=== PATIENT | female | born 1995 | race Caucasian/White ===

== ENCOUNTER 2019-09-13 08:57 | Outpatient (CLI) | payer OTHER, SELFPAY ==
--- NOTE | ~2019-09-13 | US_ITS ---
EXAMINATION: US soft tissue abdomen DATE: 09/13/2019 09:37 INDICATION: Subcutaneous mass at the section scar. TECHNIQUE: Multiple grayscale and Doppler ultrasound images of the abdomen were obtained. COMPARISON: None FINDINGS: In the midline suprapubic region, there is a 10 x 6 x 8 mm subcutaneous predominantly cysti c mass with small solid mural component. IMPRESSION: 1. 10 mm subcutaneous cystic and solid mass at the section scar, which may be a chronic june kenton or endometriosis. Reviewed, dictated and finalized at location A. IMPRESSION: 1. 10 mm subcutaneous cystic and solid mass at the section scar, which may be a chronic hematoma or endometriosis.
== END 2019-09-13 08:58 | disposition home or self-care (01) ==
LOC: ANHIMG 09:00
PROVIDERS: Visit Provider Obstetrics & Gynecology
DX: L72.3 Sebaceous cyst (principal)
CPT/HCPCS: 76705

== ENCOUNTER 2020-03-10 00:46 | Outpatient (CLI) | payer OTHER, SELFPAY ==
[2020-03-10 18:04] LABS: SARS-CoV-2 RNA PCR Negative
== END 2020-03-10 00:47 | disposition home or self-care (01) ==
LOC: ANHCOVIDDT 00:46
PROVIDERS: Visit Provider Surgery
DX: Z01.812 Encounter for preprocedural laboratory examination (principal); Z20.828 Contact with and (suspected) exposure to other viral communicable diseases
CPT/HCPCS: 87635; C9803; U0003

== ENCOUNTER 2020-03-13 00:49 | Day surgery (SDC) | payer OTHER, SELFPAY ==
[2020-03-07 15:50] VITALS: BMI 49.1
--- NOTE | 2020-03-12 10:03 | WPDANESEPPF ---
Anes - Initial Pre Proc Eval Procedure: Operation Date: 03/13/20 10:30 Proposed Procedures p Debridement and Excision Suture Granuloma Abdominal Wound - Jaspreet Salcedo MD Date/Time: 03/12/20 10:03 Surgeon: Jaspreet Salcedo MD Pre Op Diagnosis: suture granuloma with abscess Patient Data Age: 24 Gender: F Height: 1.42 m Weight: 99.34 kg Allergies Allergy/AdvReac Type Severity Reaction Status Date / Time No Known Allergies Allergy Verified 03/13/20 08:45 Home Medications Medication Instructions Recorded Confirmed Type Complete 1 tablet PO DAILY 04/03/19 03/13/20 History silver [SilvrStat] 1 applic TOPICAL DAILY 03/07/20 03/13/20 History Patient hx anesthesia problems: none Family hx anesthesia problems: none PMFSH Past Medical History Medical History Abscess Anxiety Depression Encounter for supervision of normal in multigravida in third trimester Morbid obesity Rash of body Scoliosis Sebaceous cyst Smoker Surgical History Surgical History Hx of ovarian cystectomy Previous section Apr 2017,Apr 2019 Family History Family History Grandparent Hypertension Mother Hypertension Social History Social History Smoking packs per day: 0.5 Smoking cigarettes per day: 10.0 Years smoked: 10 Smoking pack-years: 5.00 Smoking status: Current every day smoker Tobacco type: cigarettes Second hand tobacco smoke exposure: No Additional smoking assessment comments: SMOKING DURING Alcohol intake: current Substance use: never Gender identity (if verbalized by the patient): Female Spiritual care concerns: No Anes - Eval Final PreProcedure Day of Procedure 03/12/20 10:03 Patient weight: obese Heart: regular rate and rhythm Lungs: clear to auscultation and normal air movement Airway: Mallampati scale class II Neurological: alert and oriented Last oral intake: >/= 8 hours ASA classification: III Emergent: no Anesthetic plan: proceed Anesthesia type and monitoring: general GIVS and ETT Informed Consent: The patient's anesthetic plan and its attendant risks and benefits were discussed with the patient/family/POA. Questions were solicited and answers provided to the satisfaction of the patient/family/POA.
[2020-03-13] VITALS (9 sets, daily range): BP systolic 91–129; BP diastolic 56–80; PULSE 86–119; RESP 14–30; TEMP 36.4–36.7; O2SAT 96–98
[2020-03-13] MEDS: LACTATED RINGERS 1,000 ML 30 ML IV CONT ×2 (09:05→12:00)
--- NOTE | 2020-03-13 09:10 | PC.NURSE ---
FHT's 150-160's dopplered midline.
--- NOTE | 2020-03-13 10:18 | SUR.PREOP ---
Up to bathroom.
--- NOTE | 2020-03-13 10:26 | WPDHPUPDATE1 ---
History and Physical Update Update Date/Time: 03/13/20 10:26 History and Physical has been reviewed, including an updated exam of the patient. There are NO changes in the patient's condition. Risks, benefits, and alternatives have been discussed and questions answered. Patient agrees to proceed with procedure.
[2020-03-13] MEDS: ceFAZolin 2 GM/D5W 50 ML 2 GM/50 ML BAG IVPB (10:41)
[2020-03-13] MEDS: BUPIVACAINE/EPINEPHRINE 0.5% 10 ML VIAL 30 ML INFILTRATE (11:19)
--- NOTE | 2020-03-13 12:31 | PM.PROC ---
Procedure Note - Detailed Date of procedure: 03/13/20 Pre-op diagnosis: suture granuloma with abscess Suture granuloma with abscess Post-op diagnosis: other (Extensive subcutaneous inflammatory mass with abscess) Procedure performed: Excisional debridement skin and subcutaneous inflammatory mass 17 x 6.5 x 2.5 cm Description of procedure: The patient was taken to surgery. She is in the 2nd trimester . Spinal anesthetic was introduced. She was also given IV sedation. The abdominal panniculus was taped in a cephalad location so that the draining tract was more easily visible. Full prep and drape was carried out. I infiltrated some methylene blue into the tract initially. I then excised the skin and immediate subcutaneous which was severely inflamed. I then followed the path of the methylene blue. It tracked to the left subcutaneous tissue. There was a large subcutaneous mass associated with it. I followed this tract using probes as well as curved find tip clamps. Eventually the methylene blue came to an end well above the anterior abdominal wall fascia. I excised all of this portion of the abdominal wall subcutaneous mass. There were pockets of cloudy yellow fluid suggestive of chronic inflammation and/or abscess. This was sent to pathology with the skin labeled left-sided subcutaneous inflammatory mass. On the right side, however, there was an even larger honeycomb type of subcutaneous inflammatory mass. There were numerous pockets of yellow cloudy fluid within this mass and 1 larger cystic pocket as well. This was also excised. This was sent to pathology labeled right-sided subcutaneous inflammatory mass. I cut open the left-sided inflammatory mass seeing if there was an 0 fend Ng foreign body but could not find 1. The remaining tissue in the abdominal wall appeared to be healthy without any inflammation. The anterior abdominal wall fascia was not violated. No large abscess was noted although each of the multiple pockets could each have been small abscesses. I measured the result in wound and had the dimensions noted above. Local anesthesia was infiltrated into the abdominal wall fascia and all wound edges. I then packed the wound with a deep layer of Xeroform gauze followed by fluffs and 4x4s. An ABD was placed and Medipore tape was used. The patient was awakened and taken to recovery in good condition. Sponge and needle counts were correct x2. Anesthesia: MAC, local (0.5% Marcaine with epinephrine) and spinal Surgeon: Jaspreet Salcedo MD Social Service Director: Florina CREWS Estimated blood loss (mL): 5 Drains: No Packing: Yes Pathology: yes (Left-sided inflammatory subcutaneous mass with skin, right-sided inflammatory subcutaneous mass) Complications: None Condition: stable Disposition: PACU Findings: Extensive honeycomb type inflammatory mass with multiple pockets and 1 cyst like structure. All excised and wound left open. No suture material or other foreign body was evident.
--- NOTE | 2020-03-13 12:46 | SUR.PHASEI ---
OB RN at the bedside getting heart tones after procedure.
--- NOTE | 2020-03-13 13:10 | PC.NURSE ---
FHTs 150's per doppler.
== END 2020-03-13 14:17 | disposition home or self-care (01) ==
PROVIDERS: Visit Provider Surgery
PROC: (CPT 11042; principal; 2020-03-13 10:30)
DX: O26.892 Other specified pregnancy related conditions, second trimester (principal); L02.211 Cutaneous abscess of abdominal wall; L92.8 Other granulomatous disorders of the skin and subcutaneous tissue; O99.332 Smoking (tobacco) complicating pregnancy, second trimester; F17.210 Nicotine dependence, cigarettes, uncomplicated; Z3A.20 20 weeks gestation of pregnancy
CPT/HCPCS: 11042; 11045 ×5; 88304; A9270; J0690; J2704; J3010; J7120; Q9968

== ENCOUNTER 2020-05-07 11:09 | Outpatient (CLI) | payer OTHER, SELFPAY ==
[2020-05-07 13:18] LABS: Basophils Percent Auto 0.2 % (0.2-1.2); Hematocrit 36.6 % (37.0-47.0); Immature Granulocyte Absolute 0.07 K/mm3 (0.00-0.031); Immature Granulocyte Percent A 0.5 % (0-0.5); Lymphocytes Absolute Auto 3.72 K/mm3 (0.9-3.2); Mean Corpuscular HGB Conc 32.8 g/dl (32-36); Mean Corpuscular Hemoglobin 27.7 pg (26-34); Mean Corpuscular Volume 84.5 fl (80-100); Mean Platelet Volume 10.1 fl (7.4-10.4); Monocytes Absolute Auto 0.6 K/mm3 (0.1-0.6); Monocytes Percent Auto 4.1 % (2.6-8.5); Neutrophils Absolute Auto 9.4 K/mm3 (1.3-6.7); Neutrophils Percent Auto 68.2 % (45.5-73.1); Platelet Count Result 308 k/mm3 (150-375); Red Blood Count 4.33 M/mm3 (4.2-5.4); Red Cell Distribution Width 14.6 % (11.5-14.5); White Blood Count 13.8 K/mm3 (4.5-10.0)
[2020-05-07 13:32] LABS: Glucose 1 Hour PP 50gm Dose 110 mg/dL
[2020-05-07 14:14] LABS: HIV 1/2 Ab P24 Ag Result Negative (Negative)
[2020-05-08 09:26] LABS: Rapid Plasma Reagin Non-Reactive (NonReactive)
== END 2020-05-07 11:10 | disposition home or self-care (01) ==
LOC: ANHLAB 11:10
PROVIDERS: PCP Obstetrics & Gynecology; Visit Provider Obstetrics & Gynecology
DX: O09.892 Supervision of other high risk pregnancies, second trimester (principal); Z3A.00 Weeks of gestation of pregnancy not specified
CPT/HCPCS: 36415; 82947; 85025; 86592; 86703; G0432

== ENCOUNTER 2020-05-15 07:38 | Outpatient (RCR) | payer OTHER, SELFPAY ==
[2020-02-15 09:00] VITALS: BMI 103.8
--- NOTE | 2020-03-08 14:56 | WPDWOUNDNOTE ---
Wound Care Note Date/Time: 03/08/20 14:56 patient is a 24-year-old woman who is currently 22 weeks gestation with her 3rd child. She is a patient of Dr. Delvalle. I was asked to see the patient due to an open abdominal abscess that has been draining. The patient has a history of a done 3 years ago. Following this, she reports having to do chronic dressing changes as the wound became infected postoperatively. This went on to heal. The patient then had a last April- April 2019. This wound did not have any problems healing. Since July of 2019, she has had intermittent drainage from an open wound that is cephalad or above the Pfannenstiel scar. It is only about 5 or 6 in above the scar. Brownish purulent drainage has been occurring and in fact recently has been occurring more often. It is tender and sometimes painful but she has not had any fever or chills. She is seen now in the wound clinic for evaluation. Assessment and Plan Assessment and plan (1) Abscess: Code(s): L02.91 - Cutaneous abscess, unspecified Status: Chronic Assessment and Plan: This has the appearance of a suture granuloma probably from her initial section 3 years ago in April of 2017. I reviewed the operative reports of both C-sections and, in both instances, the fascia was closed with absorbable 0 Vicryl suture. Since this suture is absorbable it seems surprising that a suture granuloma could persist to this time. It does appear the patient has an abscess that is draining in the lower abdomen in the area of her panniculus. It is too tender to explore or incise and drain in the office. Will plan to go ahead with exploration and debridement with drainage under anesthesia in the operating room. If a suture granuloma can be found, it will be removed. This may well be a difficult infection to heal due to the patient's large abdominal panniculus. (2) 20 weeks gestation of : Code(s): Z3A.20 - 20 weeks gestation of Status: Chronic Assessment and Plan: Even though the patient is currently, her [facility] prefers that we proceed such that this abdominal wound abscess will be healed by the time of her delivery. (3) History of elective section: Code(s): Z98.891 - History of uterine scar from previous surgery Status: Chronic (4) Morbid obesity: Code(s): E66.01 - Morbid (severe) obesity due to excess calories Status: Chronic Assessment and Plan: Increases risk of surgery and may cause a prolonged wound care situation. Review of Systems Review of Systems: All systems reviewed & are unremarkable except as noted in HPI and below Constitutional: Constitutional: Denies headache(s) Cardiovascular: Cardiovascular: Denies chest pain and Denies dyspnea Respiratory: Respiratory: Denies cough and Denies dyspnea Gastrointestinal: Gastrointestinal: Reports as per HPI Neurologic: Denies confusion and Denies headache(s) Exam Const: General: comfortable, no acute distress, alert and awake Nutritional Appearance: obese ( Large abdominal panniculus. Not able to note gravid uterus at this point) Orientation/consciousness: patient oriented x3 Limitations: no limitations HENMT: Head: normocephalic and atraumatic Mouth: Yes Normal oral and palatal mucosa present Eyes: Conjunctivae: conjunctivae normal Pupils: Equal, round and reactive pupils present EOM: EOMs intact bilaterally Neck: Neck: normal visual inspection, no lymphadenopathy and nontender Resp: Effort & Inspection: normal respiratory effort Auscultation: clear to auscultation bilaterally Cardio: Rate: regular rate Rhythm: regular rhythm Heart sounds: no gallops, no murmurs and no rubs GI: Inspection: non-distended, obesity ( Large abdominal panniculus, no gravid uterus noted), scar ( Pfannenstiel, drainage is well above this in the abdominal panniculus.) and other (
--- NOTE | 2020-03-15 08:09 | WPDWOUNDNOTE ---
Wound Care Note Date/Time: 03/14/20 11:40 Patient is a 24-year-old woman who is middle trimester with draining subcutaneous mass in the midline of the lower abdomen. Yesterday, 03/13/2020 she went to surgery and had extensive debridement of this inflammatory mass excising the overlying skin as well. She is seen today, 03/14/2020, postop day 1. To initiate wound care. Assessment and Plan Assessment and plan (1) Open wound anterior abdominal wall: Qualifiers: Encounter type: initial encounter Qualified Code(s): S31.109A - Unspecified open wound of abdominal wall, unspecified quadrant without penetration into peritoneal cavity, initial encounter Code(s): S31.109A - Unspecified open wound of abdominal wall, unspecified quadrant without penetration into peritoneal cavity, initial encounter Status: Acute Assessment and Plan: patient seen postop day 1. Wound is clean with no evidence of the inflammatory mass or any purulent material. Now this becomes simply a matter of healing this wound which measured in surgery 12 x 7 x 2.5 cm deep. Wound VAC seems to be the best option. She had a wound VAC after her 1st about 3 years ago. Orders have been sent to initiate this. She will return on 03/16 to the wound clinic and the wound VAC will be initiated. 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 This has been completely excised. (3) 20 weeks gestation of : Code(s): Z3A.20 - 20 weeks gestation of Status: Chronic Assessment and Plan: Under the care of Dr. Delvalle (4) Morbid obesity: Code(s): E66.01 - Morbid (severe) obesity due to excess calories Status: Chronic Review of Systems Review of Systems: All systems reviewed & are unremarkable except as noted in HPI and below ( HPI) Exam Const: General: cooperative, comfortable, no acute distress, alert and awake; No confusion Orientation/consciousness: No confusion GI: Inspection: incision ( open wound lower abdomen, dressings and packing removed), obesity ( Gravid uterus not evident due to large panniculus) and other ( wound very clean with no evidence of the chronic inflammatory mass.) GI Palp: Yes Soft to palpation, No Tenderness to palpation present (GI), No Hepatomegaly present and No Splenomegaly present Auscultation: normal bowel sounds and normoactive bowel sounds Skin: General skin exam: normal color, turgor normal and no erythema Lesions: no lesions Rashes: no rashes Trauma: no lacerations or abrasions Neuro: General: No confusion Cranial nerves: Yes Equal, round and reactive pupils present Motor exam (neuro): Motor abnormalities not present Extrem: General: no clubbing, cyanosis or edema and edema Psych: Affect: normal affect Thought process: Normal thought process present Insight: Good insight present (Psych)
--- NOTE | 2020-04-16 14:34 | WPDWOUNDNOTE ---
Wound Care Note Date/Time: 04/16/20 14:34 No complaints. Wound VAC discontinued at last visit. Assessment and Plan Assessment and plan (1) Open wound anterior abdominal wall: Qualifiers: Encounter type: initial encounter Qualified Code(s): S31.109A - Unspecified open wound of abdominal wall, unspecified quadrant without penetration into peritoneal cavity, initial encounter Code(s): S31.109A - Unspecified open wound of abdominal wall, unspecified quadrant without penetration into peritoneal cavity, initial encounter Status: Chronic Assessment and Plan: wound looks great. Will hold off on use of wound VAC any further. Continue silver rope to wound base and cover with gauze daily. Patient is doing this herself quite well. Recheck again in 2 weeks in wound clinic. 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 This was the source of the chronic draining wound. (3) 25 weeks gestation of : Code(s): Z3A.25 - 25 weeks gestation of Status: Chronic Assessment and Plan: Expected to deliver in June Review of Systems Review of Systems: All systems reviewed & are unremarkable except as noted in HPI and below ( HPI) Exam Const: General: comfortable, alert, awake and Physically active Nutritional Appearance: obese ( as well) Orientation/consciousness: patient oriented x3 Limitations: no limitations GI: Inspection: other ( lower abdominal wound beefy red and much smaller. Minimal tracking) GI Palp: Yes Soft to palpation, Yes Tenderness to palpation present (GI) ( minimal tenderness), No Guarding due to palpation present (GI) and No Hernia present
--- NOTE | 2020-04-16 14:40 | WPDWOUNDNOTE ---
Wound Care Note Date/Time: 03/16/20 14:40 Patient returns today to the wound clinic for recheck of her lower abdominal wound. She reports no new changes or problems. Plans are to start wound VAC therapy today. pathology showed fat necrosis as the source of the inflammatory mass. 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 (2) Open wound anterior abdominal wall: Qualifiers: Encounter type: initial encounter Qualified Code(s): S31.109A - Unspecified open wound of abdominal wall, unspecified quadrant without penetration into peritoneal cavity, initial encounter Code(s): S31.109A - Unspecified open wound of abdominal wall, unspecified quadrant without penetration into peritoneal cavity, initial encounter Status: Chronic Assessment and Plan: Start wound VAC therapy as planned today. Will be placed in the wound clinic. I will see her again in 2 weeks. (3) Morbid obesity: Code(s): E66.01 - Morbid (severe) obesity due to excess calories Status: Chronic (4) 25 weeks gestation of : Code(s): Z3A.25 - 25 weeks gestation of Status: Chronic Assessment and Plan: No problems reported Review of Systems Review of Systems: All systems reviewed & are unremarkable except as noted in HPI and below ( HPI and those below) Constitutional: Constitutional: Denies body ache(s), Denies chills, Denies fever(s) and Denies headache(s) Exam GI: Inspection: other ( lower abdominal wound shows 100% pink healthy granulation tissue. ) GI Palp: Yes Soft to palpation and Yes Tenderness to palpation present (GI) Other: Wound bed pink and healthy. Undermining noted worse at the 3 o'clock position. Wound measures 12 x 3 x 3 cm
--- NOTE | 2020-04-16 14:47 | WPDWOUNDNOTE ---
Wound Care Note Date/Time: 03/28/20 14:47 1st visit back to wound clinic on to showed the patient to have yeast infection. This was treated with crushed metronidazole into the wound bed as well as Tolnaftate powder to maceration around the wound. Since then the wound has continued to improve and the maceration has decreased. She has continued to have antifungal powder placed around the edges of the wound. Seen today for follow-up in the wound clinic. Assessment and Plan Assessment and plan (1) Open wound anterior abdominal wall: Qualifiers: Encounter type: initial encounter Qualified Code(s): S31.109A - Unspecified open wound of abdominal wall, unspecified quadrant without penetration into peritoneal cavity, initial encounter Code(s): S31.109A - Unspecified open wound of abdominal wall, unspecified quadrant without penetration into peritoneal cavity, initial encounter Status: Chronic Assessment and Plan: continues to heal slowly. Continue wound VAC therapy and antifungal powder to periwound tissues. She is getting a wound VAC change 3 times a week. I will see her again in 2 weeks. 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
--- NOTE | 2020-04-30 14:14 | WPDWOUNDNOTE ---
Wound Care Note Date/Time: 04/30/20 14:14 No new complaints. Assessment and Plan Assessment and plan (1) Open wound anterior abdominal wall: Qualifiers: Encounter type: subsequent encounter Qualified Code(s): S31.109D - Unspecified open wound of abdominal wall, unspecified quadrant without penetration into peritoneal cavity, subsequent encounter Code(s): S31.109A - Unspecified open wound of abdominal wall, unspecified quadrant without penetration into peritoneal cavity, initial encounter Status: Chronic Assessment and Plan: Nearly complete healing. Cont Aquacel Ag rope to right later open area only, daily dressing change. Cont to be seen weekly in wound clinic. I will see her prn. (2) Fat necrosis of abdominal wall: Code(s): K65.4 - Sclerosing mesenteritis Status: Resolved Assessment and Plan: Excised and resolved (3) 29 weeks gestation of : Code(s): Z3A.29 - 29 weeks gestation of Status: Chronic Assessment and Plan: I would advise taking the scar from this surgery with her C section incision in June to avoid potential skin necrosis between the 2 incisions. Discussed with wound clinic nurses who will pass this on to Dr. Delvalle. Review of Systems Review of Systems: All systems reviewed & are unremarkable except as noted in HPI and below (HPI and below) Constitutional: Constitutional: Denies chills, Denies fatigue and Denies fever(s) Exam Const: General: comfortable and no acute distress; No confusion Orientation/consciousness: patient oriented x3 and No confusion GI: Inspection: incision (wound nearly healed. Only 1.5 x 0.6cm area remains. Healthy, pink, healing) GI Palp: Yes Soft to palpation and No Tenderness to palpation present (GI) Neuro: General: patient oriented x3, no focal motor deficits and No confusion Extrem: General: no calf tenderness and no edema Psych: Affect: normal affect Insight: Good insight present (Psych) Judgement: Good judgement present (Psych)
== END 2020-05-15 23:59 | disposition home or self-care (01) ==
LOC: ANHWOC 07:38
PROVIDERS: PCP Obstetrics & Gynecology; Visit Provider Surgery
DX: T81.89XD Other complications of procedures, not elsewhere classified, subsequent encounter (principal)
CPT/HCPCS: 97605; 97606; 99212; A9270; G0463

== ENCOUNTER 2020-06-19 07:38 | Outpatient (RCR) | payer OTHER, SELFPAY ==
[2020-05-16 00:03] VITALS: BMI 103.8
== END 2020-07-02 12:43 | disposition home or self-care (01) ==
LOC: ANHWOC 07:38
PROVIDERS: PCP Obstetrics & Gynecology; Visit Provider Surgery
DX: T81.31XD Disruption of external operation (surgical) wound, not elsewhere classified, subsequent encounter (principal); T81.89XD Other complications of procedures, not elsewhere classified, subsequent encounter
CPT/HCPCS: 99211; 99212; G0463

== ENCOUNTER 2020-06-30 11:48 | Outpatient (CLI) | payer OTHER, SELFPAY ==
[2020-06-30 12:53] LABS: Hematocrit 33.5 % (37.0-47.0); Hemoglobin 11.1 g/dL (12.0-15.0); Mean Corpuscular HGB Conc 33.1 g/dl (32-36); Mean Corpuscular Hemoglobin 27.7 pg (26-34); Mean Corpuscular Volume 83.5 fl (80-100); Mean Platelet Volume 10.6 fl (7.4-10.4); Platelet Count Result 285 k/mm3 (150-375); Red Blood Count 4.01 M/mm3 (4.2-5.4); Red Cell Distribution Width 14.1 % (11.5-14.5); White Blood Count 11.1 K/mm3 (4.5-10.0)
[2020-07-02 08:50] LABS: Rapid Plasma Reagin Non-Reactive (NonReactive)
== END 2020-06-30 11:49 | disposition home or self-care (01) ==
PROVIDERS: Visit Provider Obstetrics & Gynecology
DX: Z01.818 Encounter for other preprocedural examination (principal)
CPT/HCPCS: 36415; 85027; 86592; 86850; 86900; 86901

== ENCOUNTER 2020-07-02 05:50 | Inpatient (IN) | payer OTHER, SELFPAY ==
[2020-07-02] VITALS (58 sets, daily range): BP systolic 79–132; BP diastolic 41–88; PULSE 61–129; RESP 15–20; TEMP 36.1–36.8; O2SAT 80–100; BMI 49.4
[2020-07-02] MEDS: LACTATED RINGERS 1,000 ML 125 ML IV CONT ×2 (06:28→07:18)
--- NOTE | 2020-07-02 06:29 | WPDANESEPPF ---
Anes - Initial Pre Proc Eval Procedure: Operation Date: 07/02/20 07:30 Proposed Procedures p Repeat Section With Bilateral Tubal Ligation - Tod Delvalle MD Date/Time: 07/02/20 06:29 Surgeon: Tod Delvalle MD Pre Op Diagnosis: Repeat Patient Data Age: 25 Gender: F Height: 4 ft 8 in Weight: 100 kg Last Vital Signs Pulse 78 07/02/20 06:22 BP 121/80 07/02/20 06:22 Allergies Allergy/AdvReac Type Severity Reaction Status Date / Time No Known Allergies Allergy Verified 06/27/20 14:58 Home Medications Medication Instructions Recorded Confirmed Type Complete 1 tablet PO DAILY 04/03/19 06/25/20 History cholecalciferol (vitamin D3) 50 mcg PO DAILY 06/25/20 06/25/20 History [Vitamin D3] Laboratory Tests 07/02/20 06:17 Rubella IgG Antibody Pending Patient hx anesthesia problems: none Family hx anesthesia problems: none PMFSH Past Medical History Medical History Abscess Anxiety Depression Encounter for supervision of normal in multigravida in third trimester Morbid obesity Rash of body Scoliosis Sebaceous cyst Smoker Surgical History Surgical History Hx of ovarian cystectomy Previous section Apr 2017,Apr 2019 Family History Family History Grandparent Hypertension Mother Hypertension Social History Social History Smoking packs per day: 0.5 Smoking cigarettes per day: 10.0 Years smoked: 10 Smoking pack-years: 5.00 Smoking status: Current every day smoker Tobacco type: cigarettes Second hand tobacco smoke exposure: No Additional smoking assessment comments: SMOKING DURING Alcohol intake: current Substance use: never Gender identity (if verbalized by the patient): Female Spiritual care concerns: No Anes - Eval Final PreProcedure Day of Procedure 07/02/20 06:29 Patient weight: morbidly obese Heart: regular rate and rhythm Lungs: clear to auscultation Airway: Mallampati scale class II Neurological: alert and oriented Last oral intake: >/= 8 hours ASA classification: III Anesthetic plan: proceed Anesthesia type and monitoring: regional spinal and standard monitoring Informed Consent: The patient's anesthetic plan and its attendant risks and benefits were discussed with the patient/family/POA. Questions were solicited and answers provided to the satisfaction of the patient/family/POA.
--- NOTE | 2020-07-02 06:30 | LDADM ---
This patient, Angela Horn, was admitted to Labor/Delivery/Recovery 120 on 07/02/20 at 05:50. Plans for labor, pain management and were discussed with patient. Patient/family oriented to hospital policies and general routines including ID bracelet, bed and alarms, visiting hours, pain management, procedures, bathroom and other care routines, personal items, smoking policy, room service/diet and guest tray routines, infant security routines, and visiting hours. Patient/Family are encouraged to report perceived risks to care and to ask questions if they do not understand what they are told or what they should do. See [facility] for further documentation.
--- NOTE | 2020-07-02 07:13 | PM.IMHP ---
H&P: HPI History of Present Illness Date/Time: 07/02/20 07:13 Chief Complaint: Elective repeat ceserean section. Narrative: Angela Horn is a 25 year old female at 39 weeks with two prior cesearean sections scheduled for repeat cesearean section and bilateral tubal ligation. PNC significant for abdominal abscess at the beginning of requiring secondary closure, obesity and tobacco abuse. She has a history of poor wound healing. She desires permanent sterilization. She has been counseled regarding risk benefit of tubal ligation and risk benefit of all other non permanent forms of contraception. Declines all other non permanent forms of control. Spouse declines vasectomy. She has been counseled regarding risk of cesearean section and tubal ligation and continues to desire procedure. Labs reviewed. GBS negative. Review of Systems Review of Systems: All systems reviewed & are unremarkable except as noted in HPI and below Constitutional: Constitutional: Reports no additional constitutional complaints and Denies headache(s) Eyes: Eyes: Denies spots in vision ENT: Reports system reviewed and no additional complaints, except as documented and Denies headache(s) Cardiovascular: Cardiovascular: Denies chest pain and Denies dyspnea Respiratory: Respiratory: Denies dyspnea Gastrointestinal: Gastrointestinal: Reports no additional gastrointestinal complaints Genitourinary: Genitourinary: Reports amenorrhea Musculoskeletal: Musculoskeletal: Reports no additional musculoskeletal complaints Integumentary/Breasts: Skin/Breast: Denies breast mass and Denies rash Neurologic: Denies headache(s) Psychiatric: Psychiatric: Reports no additional psychiatric complaints PMFSH Past Medical History Medical History Abscess Anxiety Depression Encounter for supervision of normal in multigravida in third trimester Morbid obesity Rash of body Scoliosis Sebaceous cyst Smoker Surgical History Surgical History Hx of ovarian cystectomy Previous section Apr 2017,Apr 2019 Family History Family History Grandparent Hypertension Mother Hypertension Social History Social History Smoking packs per day: 0.5 Smoking cigarettes per day: 10.0 Years smoked: 12 Smoking pack-years: 6.00 Smoking status: Current every day smoker Tobacco type: cigarettes Second hand tobacco smoke exposure: Yes Additional smoking assessment comments: SMOKING DURING Alcohol intake: current Substance use: never Gender identity (if verbalized by the patient): Female Spiritual care concerns: No Meds Home Medications and Allergies Home Medications Medication Instructions Recorded Confirmed Type Complete 1 tablet PO DAILY 04/03/19 06/25/20 History cholecalciferol (vitamin D3) 50 mcg PO DAILY 06/25/20 06/25/20 History [Vitamin D3] Allergies Allergy/AdvReac Type Severity Reaction Status Date / Time No Known Allergies Allergy Verified 06/27/20 14:58 Vital Signs Vital Signs - 24 hr 07/02/20 06:22 07/02/20 06:31 07/02/20 07:05 Temperature 98 F Pulse Rate 78 74 Blood Pressure 121/80 118/87 Exam Const: General: no acute distress Eyes: General: appearance normal, both eyes and all related structures Resp: Effort & Inspection: normal respiratory effort Cardio: Rate: regular rate GI: Other: Gravid no fundal tenderness no right upper quadrant pain Skin: General skin exam: no rashes or lesions noted Neuro: Cognition (Neuro): normal cognition Extrem: General: normal to inspection Psych: Mental Status: mental status grossly normal Assessment and Plan Assessment and plan (1) Delivery by elective section: Code(s): O82 - Encounter for delivery wi
--- NOTE | 2020-07-02 07:17 | WPDHPUPDATE1 ---
History and Physical Update Update Date/Time: 07/02/20 07:17 History and Physical has been reviewed, including an updated exam of the patient. There are NO changes in the patient's condition. Risks, benefits, and alternatives have been discussed and questions answered. Patient agrees to proceed with procedure.
[2020-07-02 07:26] LABS: Rubella IgG Antibody 4.9 IU/ML
[2020-07-02] MEDS: ceFAZolin 2 GM/D5W 50 ML 2 GM/50 ML BAG IVPB (07:27)
--- NOTE | 2020-07-02 09:16 | PM.PROC ---
Procedure Note - Detailed Date of procedure: 07/03/20 Pre-op diagnosis: Repeat 1. Elective repeat cesearean section. 2. Satisfied parity Post-op diagnosis: same Procedure performed: Repeat low transverse cesearean section 2. Bilateral tubal ligation. Description of procedure: After informed consent was obtained patient was taken to the operating room and adequate spinal anesthesia was administered. She was placed in supine position and prepped and draped in sterile fashion. heart tones were auscultated prior to a drape. Attention was turned to the abdomen and a Pfannenstiel skin incision was made along her prior incision from the abscess. The scar was removed. The subcutaneous tissue was dissected with scalpel and cautery. The fascia was incised in the midline extended bilaterally with Onofre scissors. The fascia was from rectus muscle superiorly and inferiorly bluntly and sharply. Scar tissue of the abdominal muscles to the fascia was lysed with Onofre scissors and cautery. The midline was identified the midline was entered and the peritoneum was entered with metzenbaum scissors. The uterus had some filmy adhesions to the omentum. The pelvic organs were visualized. The lower uterine segment and vesico-uterine peritoneum was visualized. There was mild scarring of the vesicouterine peritoneum. The bladder was dissected from the lower uterine segment. A low-transverse uterine incision was made and was extended bluntly. The amniotic cavity was entered. A large amount of clear fluid was noted. The incision was extended bluntly and the head and the rest the was delivered. The infant was vigorously crying upon delivery. The cord was doubly clamped and cut and the was handed to nursery staff in attendance. Cord segment was obtained for cord gases. Cord blood was obtained. The placenta was removed manually. The uterine cavity was sponge curetted. The uterus was noted to have good tone. The uterus was exteriorized the incision of the uterus was closed in a running locking fashion with 0 Vicryl and a second umbricating stitch of interrupted 0 Vicryl. Hemostasis was noted. Attention was turned to the left fallopian tube which was grasped with Dellroy clamp in ampullary region. The segment was enclosed with two sutures of 0 plain gut stitch. The enclosed segment was excised with Metzenbaum scissors and hemostasis was obtained at the pedicle with cautery. Attention was turned to the right fallopian tube which was grasped with Dellroy clamp in the ampularry region. This was enclosed with 2 sutures of 0 plain gut and then the enclosed segment was excised with Metzenbaum scissors. Hemostasis was obtained at the pedicle with cautery. The posterior cul de sac was irrigated and the uterus placed back in the abdomen. The paracolic gutters were irrigated. The right and left fallopian tube pedicles were visualized and noted to be hemostatic. The lower uterine segment was hemostatic. There was noted to be some mild oozing at the scarring that was lysed at the anterior uterus near the vesicouterine peritoneum and Hemoderm was placed and area was hemostatic. Interceed adhesion barrier was placed at the lower uterine segment and anterior uterus. The omentum was placed over the site. The peritoneum was approximated in the midline with several sutures of [id number] of 3 O Vicryl. The fascia was closed in a running fashion with 0 Vicryl with 2 sutures. Hemostasis was noted. 3.0 Vicryl stitich was used interrupted to approximate the subcutaneous tissue. The incision was closed with nadja. The wound vac was placed. The call center support representative was present to assure adequate placement. The QBL was 370cc. Sponge count was correct x3. The patient tolerated procedure well and was taken to recovery in stable condition. Anesthesia: spinal Surgeon: Tod Delvalle MD Estimated blood loss (mL): 370 Urine output (mL): 300 Drains: No Packing: No
[2020-07-02] MEDS: OXYTOCIN 30 UNITS/NS 500 ML 30 UNITS/500 ML BAG 125 UNITS IV CONT (09:29)
--- NOTE | 2020-07-02 11:23 | PC.NURSE ---
Patient transferred to post room #282 via stretcher from labor and delivery. Support person present. Oriented to unit, room, information board, rooming in, admission packet and security measures. Patient verbalizes understanding.
--- NOTE | 2020-07-02 13:28 | PC.NURSE ---
Consulted with patient, reviewed infant feeding cues, frequencies, duration of feedings, feeding elimination flow sheet, and signs of adequate intake. Demonstrated stimulation techniques to wake infant for feeding. Assisted with infant to breast. Reviewed positioning/alignment, holding breast and asymmetrical latch on. Infant was unable to latch correctly. was sleep despite stimulation, trying different positions, hand expression of colostrum, and skin to skin. Reviewed signs of a correct latch, effective nursing and suck swallow ratio. Nipple care reviewed. Instructed mother to call out for RN assistance if she is unable to latch for feeding or she has discomfort with nursing. Instructed feeding should be initiated three hours from start of last feeding or if feeding cues are noted before. Mother voiced understanding of information shared. Breast pump provided due to not latching and . Instructions given on breast pump care and usage, nipple care, and collection and storage of breast milk. Encouraged [id number]-ki-[id number], breast massage and manual expression to stimulate supply. Assessed patient for correct flange size, placement and draw. Patient verbalizes and demonstrates understanding of instructions. Nipple shield provided to mother due to not latching on to breast. Instructions given on application and cleaning of shield. Discussed nipple shield precautions and possible complications. Patient able to return demonstration on proper application of shield. Discussed the need to initiate pumping if infant continues to nurse with the shield. Patient verbalizes understanding.
[2020-07-02] MEDS: DEXTROSE 5%/0.45% SOD CHL 1,000 ML 125 ML IV CONT (14:41)
[2020-07-02] MEDS: IBUPROFEN 600 MG TABLET PO (14:47)
[2020-07-02] MEDS: HYDROcodone/acetaminophen (*CRX) 5-325 MG TABLET 1 TAB PO (20:03)
[2020-07-03 00:15] VITALS: BP 97/62; PULSE 79; RESP 16; TEMP 36.7; O2SAT 98
[2020-07-03] MEDS: HYDROcodone/acetaminophen (*CRX) 5-325 MG TABLET 1 TAB PO ×5 (00:19→22:54)
[2020-07-03] MEDS: IBUPROFEN 600 MG TABLET PO ×4 (00:19→22:54)
[2020-07-03 04:30] VITALS: BP 96/62; PULSE 83; RESP 16; TEMP 36.3; O2SAT 95
[2020-07-03 05:41] LABS: Basophils Percent Auto 0.2 % (0.2-1.2); Hematocrit 30.1 % (37.0-47.0); Hemoglobin 9.7 g/dL (12.0-15.0); Immature Granulocyte Absolute 0.04 K/mm3 (0.00-0.031); Immature Granulocyte Percent A 0.3 % (0-0.5); Lymphocytes Percent Auto 27.4 % (18.3-44.2); Mean Corpuscular HGB Conc 32.2 g/dl (32-36); Mean Corpuscular Hemoglobin 27.6 pg (26-34); Mean Corpuscular Volume 85.5 fl (80-100); Mean Platelet Volume 10.8 fl (7.4-10.4); Monocytes Absolute Auto 0.8 K/mm3 (0.1-0.6); Monocytes Percent Auto 6.3 % (2.6-8.5); Neutrophils Absolute Auto 7.9 K/mm3 (1.3-6.7); Neutrophils Percent Auto 65.8 % (45.5-73.1); Platelet Count Result 252 k/mm3 (150-375); Red Blood Count 3.52 M/mm3 (4.2-5.4); Red Cell Distribution Width 14.3 % (11.5-14.5); White Blood Count 12.1 K/mm3 (4.5-10.0)
[2020-07-03 08:00] VITALS: BP 120/72; PULSE 89; RESP 18; TEMP 36.8; O2SAT 98
[2020-07-03] MEDS: POLYSACCHARIDE IRON COMPLEX 150 MG CAPSULE PO ×2 (08:34→16:24)
[2020-07-03] MEDS: MULTIVIT/MIN/PREN/FOL AC/IRON TABLET 1 TAB PO (08:35)
[2020-07-03] MEDS: DOCUSATE SODIUM 100 MG CAPSULE PO ×2 (08:35→16:24)
--- NOTE | 2020-07-03 08:39 | WPDANLDPN2 ---
Anes-Prog Note L&D Date/Time: 07/03/20 08:39 Comfortable throughout: section Neuraxial method: spinal Epidural/Spinal procedure site: clean & non-tender Neuro status: Neuro function grossly intact. Cardiovascular status: normal Respiratory status: normal Airway patency: baseline Mental status: baseline Post-Op hydration status: normal Vital Signs: Last Vital Signs Temp 36.3 C L 07/03/20 04:30 Pulse 83 07/03/20 04:30 Resp 16 07/03/20 04:30 BP 96/62 L 07/03/20 04:30 Pulse Ox 95 07/03/20 04:30 Pain score (VAS): 3 I/O: Intake & Output 07/02/20 07/03/20 07/03/20 23:59 07:59 15:59 Intake Total 1100 800 Output Total 1650 1150 Balance -550 -350 Post-procedural complaints: none Patient feedback: Patient satisfied with anesthetic care.
--- NOTE | 2020-07-03 08:39 | WPDANLDNPN2 ---
Anes-Prog Note L&D-Neuraxial Date/Time: 07/03/20 08:39 Neuraxial medications: intrathecal PF morphine Opiod-related complaints: none Patient feedback: Patient satisfied with post-operative pain management.
--- NOTE | 2020-07-03 10:30 | P.PNOB_ITS ---
OB - PN: Subj Subjective Date/time seen: 07/03/20 10:30 She states she feels good. Has adequate pain control. Has ambulated without problems. Passed flatus. Tolerated regular diet. going well. No leg pain or chest pain. No lightheadedness or dizziness. OB - PN: Obj Data Labs CBC & Chem 7: 07/03/20 04:48 Labs: Laboratory Results - last 24 hr 07/03/20 04:48 WBC 12.1 H RBC 3.52 L Hgb 9.7 L Hct 30.1 L MCV 85.5 MCH 27.6 MCHC 32.2 RDW 14.3 Plt Count 252 MPV 10.8 H Immature Gran % (Auto) 0.3 Neut % (Auto) 65.8 Lymph % (Auto) 27.4 [place] % (Auto) 6.3 Eos % (Auto) 0.0 Baso % (Auto) 0.2 Lymph # (Auto) 3.30 H [place] # (Auto) 0.8 H Eos # (Auto) 0.0 Baso # (Auto) 0.0 Abs Immat Gran (auto) 0.04 H Absolute Neuts (auto) 7.9 H Absolute Nucleated RBC 0.0 Nucleated RBC % 0.0 OB - PN A/P Assessment and Plan (1) Status post section: Code(s): Z98.891 - History of uterine scar from previous surgery Status: Acute Assessment and Plan: She is doing well. Routine post op care. (2) Postoperative anemia: Code(s): D64.9 - Anemia, unspecified Status: Acute Assessment and Plan: Asymptomatic. Iron supplementation. Time Spent With Patient Time: Total time spent is greater than 50% in coordination of care (as documented) at patient's floor/unit and/or counseling patient: Exam Const: General: comfortable and no acute distress Resp: Effort & Inspection: normal respiratory effort Auscultation: clear to auscultation bilaterally Cardio: Rate: regular rate GI: Other: hypoactive bowel sounds, nondistended, vacuum intact, uterus a ppropriate tender -2 umb Extrem: General: normal to inspection Other: nontender, no edema Psych: Mental Status: mental status grossly normal Affect: normal affect
--- NOTE | 2020-07-03 16:52 | PC.NURSE ---
Patient viewed the discharge video Mother & Baby Care, The First Two Weeks with past 2 deliveries. Patient was given the opportunity and encouraged to ask questions. Patient verbalized understanding of information shared and has been given the mother/baby guide for home reference.
[2020-07-03 18:33] VITALS: BP 137/84; PULSE 110; RESP 16; TEMP 37.2; O2SAT 100
--- NOTE | 2020-07-04 07:36 | PM.OBPNVD ---
OB - PN: Subj Subjective Date/time seen: 07/04/20 07:36 She is tolerating regular diet. No emesis. Positive flatus. No leg pain. Scant lochia. Breast feeding well. Ambulating without problem. OB - PN: Obj Data Labs CBC & Chem 7: 07/03/20 04:48 OB - PN A/P Assessment and Plan (1) Status post section: Code(s): Z98.891 - History of uterine scar from previous surgery Status: Acute Assessment and Plan: She is doing well. Continue routine post op care. Time Spent With Patient Time: Total time spent is greater than 50% in coordination of care (as documented) at patient's floor/unit and/or counseling patient: Exam Const: General: comfortable and no acute distress Resp: Effort & Inspection: normal respiratory effort Auscultation: clear to auscultation bilaterally Cardio: Rate: regular rate GI: Other: nondistended, wound vac clean intact. Psych: Mental Status: mental status grossly normal Affect: normal affect
[2020-07-04 08:50] VITALS: BP 143/87; PULSE 94; RESP 18; TEMP 36.8; O2SAT 98
[2020-07-04] MEDS: POLYSACCHARIDE IRON COMPLEX 150 MG CAPSULE PO ×2 (08:59→16:17)
[2020-07-04] MEDS: HYDROcodone/acetaminophen (*CRX) 5-325 MG TABLET 1 TAB PO ×2 (09:00→16:18)
[2020-07-04] MEDS: DOCUSATE SODIUM 100 MG CAPSULE PO ×2 (09:00→16:17)
[2020-07-04] MEDS: IBUPROFEN 600 MG TABLET PO ×2 (09:00→16:18)
[2020-07-04] MEDS: MULTIVIT/MIN/PREN/FOL AC/IRON TABLET 1 TAB PO (09:00)
[2020-07-04 19:52] VITALS: BP 142/90; PULSE 80; RESP 18; TEMP 36.3; O2SAT 99
[2020-07-05 08:00] VITALS: BP 136/81; PULSE 77; RESP 16; TEMP 36.7; O2SAT 99
[2020-07-05] MEDS: DOCUSATE SODIUM 100 MG CAPSULE PO (08:01)
[2020-07-05] MEDS: IBUPROFEN 600 MG TABLET PO (08:01)
[2020-07-05] MEDS: POLYSACCHARIDE IRON COMPLEX 150 MG CAPSULE PO (08:01)
[2020-07-05] MEDS: MULTIVIT/MIN/PREN/FOL AC/IRON TABLET 1 TAB PO (08:01)
[2020-07-05] MEDS: HYDROcodone/acetaminophen (*CRX) 5-325 MG TABLET 1 TAB PO (08:02)
--- NOTE | 2020-07-05 08:44 | P.DS_ITS ---
DS: Admitting Diagnosis Admitting Diagnosis Admitting Diagnosis: Elective repeat cesearean section. DS: Discharge Diagnosis Discharge Diagnosis (1) Delivery by elective section: Code(s): O82 - Encounter for delivery without indication Status: Acute (2) Encounter for sterilization: Code(s): Z30.2 - Encounter for sterilization Status: Acute (3) Postoperative anemia: Code(s): D64.9 - Anemia, unspecified Status: Acute OB - DS: Summary OB Procedures : NST OB Procedures Intrapartum: and Tubal ligation OB Procedures: : None Peripartum Data Infant Delivery Method: Section Procedures: Procedures Operation Date: 07/02/20 07:30 Actual Procedures Side Surgeon p Section Tod Delvalle MD complications: none Time Spent with Patient Time attestation: Total time spent providing and/or coordinating discharge services: Exam Const: General: cooperative, comfortable and no acute distress Eyes: General: appearance normal, both eyes and all related structures Resp: Effort & Inspection: normal respiratory effort GI: GI Palp: Yes Other GI palpation findings present (nontender, wound vac dressing intact.) Skin: General skin exam: no rashes or lesions noted Neuro: General: oriented to person, oriented to place and oriented to time Extrem: General: normal to inspection Psych: Appearance: grossly normal Mental Status: mental status grossly normal DS: Data Data Completed and Pending Completed studies during hospitalization: Pending at discharge 07/02/20 08:21 Surgical [PTH] Routine Discharge Plan Discharge Attending physician on discharge: Tod Delvalle Consulting providers: Natalia Schofield Discharging Clinician: Tod Delvalle Anticipated Discharge Date/Time: 07/05/20 11:52 Patient Disposition: Home, Self-Care Activity: may shower, no straining, may drive after 2 weeks and pelvic rest Diet: regular Discharge Instructions: Call for fever, drainage from incision, vaginal bleeding saturating more than a pad an hour, leg pain and/or redness. Severe headache or visual problems. May take over the counter Ibuprofen or Tylenol for pain. Prescription pain medication sent. Take daily PNV. Take over the counter SloFe once a day. May take over the counter stool softener, Colace as needed for constipation. Patient Instructions: Antibiotic Form Stand Alone Forms: General Discharge Information Follow-up/Referrals: Tod Delvalle MD [Physician] - 1 Week (Call for appointment.) Discharge Medications: New hydrocodone-acetaminophen 5-325 mg Tablet See Rx Instructions .ROUTE .COMPLEX PRN (Reason: Moderate Pain (4-6)) Qty: 20 RF: 0 Continued Complete 14 mg iron- 400 mcg Tablet 1 tablet PO DAILY RF: 0 cholecalciferol (vitamin D3) [Vitamin D3] 50 mcg (2,000 unit) Tablet 50 mcg PO DAILY RF: 0 Date of admission: 07/02/20 05:50 Primary Care Provider: PHYSICIAN,DISTILLERY MILLER HELPER Admitting Provider: Tod Delvalle Attending physician on admission: Tod Delvalle Condition: Stable
--- NOTE | 2020-07-05 08:44 | PM.OBPNVD ---
OB - PN: Subj Subjective Date/time seen: 07/05/20 08:44 She states she is doing well. Ambulating. Baby doing well. Adequate pain control. Denies headache, scotomata or RUQ pain. OB - PN: Obj Data Labs CBC & Chem 7: 07/03/20 04:48 OB - PN A/P Assessment and Plan (1) Status post section: Code(s): Z98.891 - History of uterine scar from previous surgery Status: Acute Assessment and Plan: Doing well. Anticipate discharge today if labs are normal. (2) Elevated blood pressure reading: Code(s): R03.0 - Elevated blood-pressure reading, without diagnosis of hypertension Status: Acute Assessment and Plan: Normal blood pressure this morning. No signs or symptoms of pre-eclampsia. Will check labs. If normal will discharge today. Time Spent With Patient Time: Total time spent is greater than 50% in coordination of care (as documented) at patient's floor/unit and/or counseling patient: Exam Const: General: comfortable and no acute distress Resp: Effort & Inspection: normal respiratory effort GI: Other: nontender, dressing intact Extrem: Other: nontender no swelling. Psych: Mental Status: mental status grossly normal Affect: normal affect
[2020-07-05 09:22] LABS: Hemoglobin 9.2 g/dL (12.0-15.0); Mean Corpuscular HGB Conc 32.9 g/dl (32-36); Mean Corpuscular Hemoglobin 28.1 pg (26-34); Mean Corpuscular Volume 85.6 fl (80-100); Mean Platelet Volume 9.9 fl (7.4-10.4); Platelet Count Result 295 k/mm3 (150-375); Red Blood Count 3.27 M/mm3 (4.2-5.4); Red Cell Distribution Width 14.6 % (11.5-14.5); White Blood Count 10.1 K/mm3 (4.5-10.0)
[2020-07-05 09:34] LABS: Alanine Aminotransferase 9 U/L (4-35); Albumin Level 2.9 g/dL (3.5-5.1); Alkaline Phosphatase 121 U/L (38-126); Anion Gap 4 mmol/L (8-16); Aspartate Amino Transferase 21 U/L (14-36); Bilirubin,Total 0.2 mg/dL (0.2-1.3); Blood Urea Nitrogen 8 mg/dL (7-17); Calcium 8.3 mg/dL (8.4-10.2); Carbon Dioxide 27 mmol/L (22-30); Chloride 106 mmol/L (98-107); Estimated Glomerular Filt Rate > 60; Glucose 79 mg/dL (65-105); Potassium 4.3 mmol/L (3.4-5.0); Sodium 137 mmol/L (137-145); Uric Acid 3.7 mg/dL (2.5-7.5)
[2020-07-05] MEDS: MEASLES,MUMPS,RUBELLA VACCINE 0.5 ML VIAL SUB-Q (14:11)
--- NOTE | 2020-07-05 15:21 | PC.NURSE ---
Patient was given the opportunity to view the discharge video Mother & Baby Care, The First Two Weeks and to ask questions. Patient declined viewing the video and has been given the mother/baby guide for home reference.
== END 2020-07-05 15:30 | disposition home or self-care (01) | DRG 540 ==
LOC: ANHLDR 05:53 → ANHOB2 11:29
PROVIDERS: Admitting Provider Obstetrics & Gynecology; Visit Provider Obstetrics & Gynecology
PROC: (CPT 59514; principal; 2020-07-02 07:30)
DX: O34.211 Maternal care for low transverse scar from previous cesarean delivery (principal); Z37.0 Single live birth; Z3A.39 39 weeks gestation of pregnancy; Z23 Encounter for immunization; O99.214 Obesity complicating childbirth; E66.01 Morbid (severe) obesity due to excess calories; O99.334 Smoking (tobacco) complicating childbirth; F17.210 Nicotine dependence, cigarettes, uncomplicated; M41.9 Scoliosis, unspecified; O99.892 Other specified diseases and conditions complicating childbirth; F41.8 Other specified anxiety disorders; O99.344 Other mental disorders complicating childbirth; Z30.2 Encounter for sterilization; O90.81 Anemia of the puerperium; D64.9 Anemia, unspecified
CPT/HCPCS: 36415; 80053; 84550; 85025; 85027; 86762; 88302; 90471; 90653; 90710; A9270; G0008; J0131; J0690; J2274; J2370; J2405; J2590; J7120

== ENCOUNTER 2020-07-19 16:08 | Inpatient (IN) | payer OTHER, SELFPAY ==
--- NOTE | ~2020-07-19 | CT_ITS ---
EXAMINATION: CT abdomen pelvis w con INDICATION: Postoperative infection, two weeks TECHNIQUE: Computed tomographic images of the abdomen and pelvis were obtained after the administrati on of 100 cc of Omnipaque 350 intravenous contrast. The dose-length product (DLP) was 1158.63 mGy-cm. Automated exposure control and iterative reconstruction technique were employed. COMPARISON: None available FINDINGS: The lung bases are clear. The heart size is normal. The liver, spleen, pancreas, gallbladde r, and adrenal glands are normal. There is a 6 mm nonobstructing stone of the left kidney upper pole. The right kidney is normal. There is fat stranding in the soft tissues of the lower abdomen. A few t iny foci of scattered gas are seen in the area of inflammation. A 1.3 cm fluid collection is present to the left of midline containing a focus of gas. There is subtle low attenuation in the anterior asp ect of the lower uterine body, likely reflecting section. No pathologically enlarged abdomin al or pelvic lymph nodes are identified. There is no free intraperitoneal gas or evidence of bowel ob struction. IMPRESSION: 1. Cellulitis, surgical change, and tiny abscesses of the lower abdominal wall likely related to cesa rean section. 2. Nonobstructing left nephrolithiasis. Reviewed, dictated and finalized at location A. [employer] IMPRESSION: 1. Cellulitis, surgical change, and tiny abscesses of the lower abdominal wall likely related to section. 2. Nonobstructing left nephrolithiasis.
[2020-07-19 15:30] VITALS: BP 120/85; PULSE 75; RESP 16; TEMP 36.1; O2SAT 99
--- NOTE | 2020-07-19 15:30 | ADMGEN ---
This patient, Angela Horn, was admitted to Medical Room 250-01. Patient/family oriented to hospital policies and general routines including ID bracelet, bed and alarms, visiting hours, pain management, procedures, bathroom and other care routines, personal items, smoking policy, room service/diet, and visiting hours. Information on how to activate the Rapid Response Team has been discussed. Patient/Family are encouraged to report perceived risks to care and to ask questions if they do not understand what they are told or what they should do.
[2020-07-19 15:31] LABS: Hematocrit 37.9 % (37.0-47.0); Hemoglobin 12.2 g/dL (12.0-15.0); Mean Corpuscular HGB Conc 32.2 g/dl (32-36); Mean Corpuscular Hemoglobin 27.4 pg (26-34); Mean Platelet Volume 9.3 fl (7.4-10.4); Platelet Count Result 447 k/mm3 (150-375); Red Blood Count 4.46 M/mm3 (4.2-5.4); Red Cell Distribution Width 13.5 % (11.5-14.5); White Blood Count 11.8 K/mm3 (4.5-10.0)
[2020-07-19 15:43] LABS: Alanine Aminotransferase 18 U/L (4-35); Alkaline Phosphatase 135 U/L (38-126); Anion Gap 6 mmol/L (8-16); Aspartate Amino Transferase 23 U/L (14-36); Bilirubin,Total 0.3 mg/dL (0.2-1.3); Blood Urea Nitrogen 11 mg/dL (7-17); Carbon Dioxide 25 mmol/L (22-30); Chloride 107 mmol/L (98-107); Estimated Glomerular Filt Rate > 60; Glucose 87 mg/dL (65-105); Potassium 3.8 mmol/L (3.4-5.0); Sodium 138 mmol/L (137-145)
[2020-07-19 15:44] VITALS: BMI 46.3
--- NOTE | 2020-07-19 16:08 | PM.IMHP ---
H&P: HPI History of Present Illness Date/Time: 07/19/20 16:08 Chief Complaint: Wound infection. Narrative: Angela Horn is a 25 year old female 17 days status post repeat cesearean and tubal ligation. She presented today after having complaints of burning in abdomen, above incision and foul smelling discharge and firmness at her mid abdomen. The drainage was cultured today in the office. She had been seen on 07/12/20 with complaints of leaking from incision. At that visit a <2cm superficial opening was seen and small amount serous fluid drained. She was started on oral antibiotics and the area was packed with iodofoam gauze. She denies fever and chills. Review of Systems Review of Systems: All systems reviewed & are unremarkable except as noted in HPI and below Eyes: Eyes: Reports no additional eye complaints Cardiovascular: Cardiovascular: Reports no additional cardiovascular complaints and Denies chest pain Respiratory: Respiratory: Reports no additional respiratory complaints Gastrointestinal: Gastrointestinal: Reports no additional gastrointestinal complaints Psychiatric: Psychiatric: Reports no additional psychiatric complaints PMFSH Past Medical History Medical History Abscess Anxiety Depression Encounter for supervision of normal in multigravida in third trimester Morbid obesity Rash of body Scoliosis Sebaceous cyst Smoker Surgical History Surgical History Hx of ovarian cystectomy Previous section Apr 2017,Apr 2019 Family History Family History Grandparent Hypertension Mother Hypertension Social History Social History Smoking packs per day: 0.5 Smoking cigarettes per day: 10.0 Years smoked: 12 Smoking pack-years: 6.00 Smoking status: Current every day smoker Tobacco type: cigarettes Second hand tobacco smoke exposure: Yes Additional smoking assessment comments: SMOKING DURING Substance use: never Gender identity (if verbalized by the patient): Female Spiritual care concerns: No Meds Home Medications and Allergies Home Medications Medication Instructions Recorded Confirmed Type Complete 1 tablet PO DAILY 04/03/19 07/19/20 History cholecalciferol (vitamin D3) 50 mcg PO DAILY 06/25/20 07/19/20 History [Vitamin D3] hydrocodone-acetaminophen See Rx Instructions .ROUTE 07/05/20 07/19/20 Rx .COMPLEX PRN #20 tablet cephalexin 250 mg capsule 250 mg PO Q8H #21 cap 07/12/20 07/19/20 Rx Allergies Allergy/AdvReac Type Severity Reaction Status Date / Time No Known Allergies Allergy Verified 07/19/20 15:43 Vital Signs Vital Signs - 24 hr 07/19/20 15:30 Temperature 96.9 F L Pulse Rate 75 Respiratory Rate 16 Blood Pressure 120/85 Pulse Oximetry 99 Exam Const: General: no acute distress Eyes: General: appearance normal, both eyes and all related structures Resp: Effort & Inspection: normal respiratory effort GI: Other: Right side mid abdomen, palpable tender firmness measuring 5-6 cm, non erythematous, drainage from the 1.5 opening at right incision greenish foul odor, small amount discharge expressed, the area tracks a slightly anterior. Extrem: General: normal to inspection H&P: Results Labs Labs: Short CBC 07/19/20 Range/Units 15:22 WBC 11.8 H (4.5-10.0) K/mm3 Hgb 12.2 D (12.0-15.0) g/dL Hct 37.9 (37.0-47.0) % Plt Count 447 H D (150-375) k/mm3 BMP 07/19/20 15:22 Sodium 138 Potassium 3.8 Chloride 107 Carbon Dioxide 25 BUN 11 Creatinine 0.50 L Glucose 87 Calcium 9.0 Liver Function 07/19/20 Range/Units 15:22 Total Bilirubin 0.3 (0.2-1.3) mg/dL AST 23 (14-36) U/L ALT 18 (4-35) U/L Alkaline Phosphatase 135 H (38-126) U/L Albumin 4.0 (3.5-5.1) g/dL
[2020-07-19 20:00] VITALS: PULSE 75; RESP 16; O2SAT 99
[2020-07-19 22:00] VITALS: BP 134/80; PULSE 77; RESP 21; TEMP 36.3; O2SAT 100
[2020-07-19] MEDS: HYDROcodone/acetaminophen (*CRX) 5-325 MG TABLET 1 TAB PO (23:11)
[2020-07-20 05:25] LABS: Hematocrit 35.2 % (37.0-47.0); Hemoglobin 11.1 g/dL (12.0-15.0); Mean Corpuscular HGB Conc 31.5 g/dl (32-36); Mean Corpuscular Volume 85.6 fl (80-100); Mean Platelet Volume 9.4 fl (7.4-10.4); Platelet Count Result 382 k/mm3 (150-375); Red Blood Count 4.11 M/mm3 (4.2-5.4); Red Cell Distribution Width 13.5 % (11.5-14.5)
[2020-07-20 06:00] VITALS: BP 109/66; PULSE 72; RESP 20; TEMP 36.1; O2SAT 99
[2020-07-20 08:29] VITALS: BP 116/74; PULSE 79; RESP 18; TEMP 36.6; O2SAT 100
--- NOTE | 2020-07-20 12:28 | PM.GYNPNOP ---
TIRE CENTER MANAGER - A/P Assessment and plan (1) Wound infection following section, : Code(s): O86.00 - Infection of obstetric surgical wound, unspecified Status: Acute Assessment and Plan: Clinically improving. Discussed the CT findings with her consistent with cellulitis. No abscess. Wound service consulted. Culture from incision pending. Continue IV antibiotics for 2 -3 days. Time Spent With Patient Time: Total time spent is greater than 50% in coordination of care (as documented) at patient's floor/unit and/or counseling patient: Time with patient: less than 15 minutes TIRE CENTER MANAGER- PN:Subj Post-Op Subjective Date/time seen: 07/20/20 12:28 She states the area on the abdomen feels better than when she was admitted. Still tenderness but better. No chills. Exam Const: General: comfortable and no acute distress Eyes: General: appearance normal, both eyes and all related structures Resp: Effort & Inspection: normal respiratory effort GI: Other: Indurated area smaller, 3.5cm (previously approximately 5-6cm), tender, no fluctuance Incision the superficila opening has less drainage, green, not bubbly Extrem: General: normal to inspection Other: nontender Psych: Appearance: grossly normal TIRE CENTER MANAGER - PN: Obj Data Vital Signs Vital Signs: Vital Signs - 24 hr 07/19/20 15:30 07/19/20 20:00 07/19/20 22:00 Temperature 96.9 F L 97.3 F L Pulse Rate 75 75 77 Respiratory Rate 16 16 21 H Blood Pressure 120/85 134/80 Pulse Oximetry 99 99 100 07/20/20 06:00 07/20/20 08:29 Temperature 97.0 F L 97.9 F Pulse Rate 72 79 Respiratory Rate 20 18 Blood Pressure 109/66 116/74 Pulse Oximetry 99 100 Intake/Output Intake/Output: Intake & Output 07/17/20 07/18/20 07/19/20 07/20/20 23:59 23:59 23:59 23:59 Intake Total 840 50 Output Total 700 Balance 840 -650 Meds/Results Medications: Active Medications Generic Name Dose Route Start Last Admin Trade Name Freq PRN Reason Stop Dose Admin Acetaminophen 650 mg 07/19/20 15:08 Acetaminophen 325 Mg Tablet PO Q6H PRN Mild Pain (1-3) or Fever Hydrocodone Bitart/Acetaminophen 1 tab 07/19/20 19:39 07/19/20 23:11 Hydrocodone/Acetaminophen (*Crx) 5-325 Mg Tablet PO 1 tab Q4H PRN Administration Pain Rated 7-10 Piperacillin/Tazobactam/Dextrose 3.375 gm in 50 mls @ 100 mls/hr 07/19/20 16:00 07/20/20 11:49 Zosyn 3.375 Gm/D5w 50ml Pm IVPB 100 mls/hr Q6H ROLF Administration Vancomycin HCl 1,500 mg in 500 mls @ 333.333 mls/hr 07/19/20 21:00 07/20/20 10:44 Vancomycin 1,500 Mg/D5w 500 Ml IVPB 250 mls/hr Q12H ROLF Administration Ibuprofen 600 mg 07/19/20 15:08 Ibuprofen 600 Mg Tablet PO Q6H PRN Moderate Pain (4-6) Ondansetron HCl 4 mg 07/19/20 19:40 Ondansetron Inj 4 Mg/2 Ml Vial IV PUSH Q6H PRN Nausea And Vomiting Radiology Results: ITS Impressions Abdomen/Pelvis CT 07/19/20 18:04 IMPRESSION: 1. Cellulitis, surgical change, and tiny abscesses of the lower abdominal wall likely related to section. 2. Nonobstructing left nephrolithiasis. Labs CBC & Chem 7: 07/20/20 05:15 07/19/20 15:22 Labs: Laboratory Results - last 24 hr 07/19/20 07/19/20 07/20/20 15:22 15:22 05:15 WBC 11.8 H 9.0 RBC 4.46 4.11 L Hgb 12.2 D 11.1 L Hct 37.9 35.2 L MCV 85.0 85.6 MCH 27.4 27.0 MCHC 32.2 31.5 L RDW 13.5 13.5 Plt Count 447 H D 382 H MPV 9.3 9.4 Sodium 138 Potassium 3.8 Chloride 107 Carbon Dioxide 25 Anion Gap 6 L BUN 11 Creatinine 0.50 L Estim Creat Clear Calc Not Reportable Estimated GFR > 60 Glucose 87 Calcium 9.0 Total Bilirubin 0.3 AST 23 ALT 18 Alkaline Phosphatase 135 H Total Protein 7.0 Albumin 4.0
[2020-07-20 14:04] VITALS: BP 122/80; PULSE 87; RESP 18; TEMP 35.7; O2SAT 99
--- NOTE | 2020-07-20 15:34 | PC.NURSE ---
On 07/20/20, the student, [ Shila Padilla], provided care and completed [facility] documentation on this patient. I have reviewed the student's documentation and agree with the findings.
[2020-07-20 21:11] VITALS: BP 108/61; PULSE 78; RESP 16; TEMP 36.7; O2SAT 99
[2020-07-21 05:32] VITALS: BP 132/79; PULSE 79; RESP 16; TEMP 36.2; O2SAT 98
[2020-07-21 08:38] LABS: Vancomycin Trough 9.4 ug/mL (10.0-20.0)
--- NOTE | 2020-07-21 12:09 | PM.GYNPNOP ---
GLOBAL SOURCING MANAGER - A/P Assessment and plan (1) Wound cellulitis: Code(s): L03.90 - Cellulitis, unspecified Status: Acute Assessment and Plan: She is clinically improving. No pain at site. Culture results pending. Will discharge to home after her 48 hour dosing of Zosyn. She will home with oral antibiotics- Augmentin and Vancomycin- both compatible with . Will adjust if needed based on wound culture results. Discharge instructions provided. Time Spent With Patient Time: Total time spent is greater than 50% in coordination of care (as documented) at patient's floor/unit and/or counseling patient: Time with patient: less than 15 minutes GLOBAL SOURCING MANAGER- PN:Subj Post-Op Subjective Date/time seen: 07/21/20 1000 She states the area is not painful. She was seen by wound service. She is comfortable with wound changes. No chills. Exam Const: General: comfortable and no acute distress Eyes: General: appearance normal, both eyes and all related structures Resp: Effort & Inspection: normal respiratory effort GI: Rectal Exam: buttock abscess Other: soft, nontender at indurated site, no erythema. Incision minimal drainage on dressing, packing intact. Extrem: General: normal to inspection Other: nontender Psych: Appearance: grossly normal GLOBAL SOURCING MANAGER - PN: Obj Data Vital Signs Vital Signs: Vital Signs - 24 hr 07/20/20 14:04 07/20/20 21:11 07/21/20 05:32 Temperature 96.3 F L 98.0 F 97.1 F L Pulse Rate 87 78 79 Respiratory Rate 18 16 16 Blood Pressure 122/80 108/61 132/79 Pulse Oximetry 99 99 98 Intake/Output Intake/Output: Intake & Output 07/18/20 07/19/20 07/20/20 07/21/20 23:59 23:59 23:59 23:59 Intake Total 840 1300 1190 Output Total 1400 900 Balance 840 -100 290 Meds/Results Medications: Active Medications Generic Name Dose Route Start Last Admin Trade Name Freq PRN Reason Stop Dose Admin Acetaminophen 650 mg 07/19/20 15:08 Acetaminophen 325 Mg Tablet PO Q6H PRN Mild Pain (1-3) or Fever Hydrocodone Bitart/Acetaminophen 1 tab 07/19/20 19:39 07/19/20 23:11 Hydrocodone/Acetaminophen (*Crx) 5-325 Mg Tablet PO 1 tab Q4H PRN Administration Pain Rated 7-10 Piperacillin/Tazobactam/Dextrose 3.375 gm in 50 mls @ 100 mls/hr 07/19/20 16:00 07/21/20 11:49 Zosyn 3.375 Gm/D5w 50ml Pm IVPB 100 mls/hr Q6H ROLF Administration Vancomycin HCl 1,500 mg in 500 mls @ 333.333 mls/hr 07/19/20 21:00 07/21/20 08:56 Vancomycin 1,500 Mg/D5w 500 Ml IVPB 200 mls/hr Q12H ROLF Administration Ibuprofen 600 mg 07/19/20 15:08 Ibuprofen 600 Mg Tablet PO Q6H PRN Moderate Pain (4-6) Ondansetron HCl 4 mg 07/19/20 19:40 Ondansetron Inj 4 Mg/2 Ml Vial IV PUSH Q6H PRN Nausea And Vomiting Silver Nitrate 1 each 07/20/20 09:00 07/21/20 09:00 [facility] Advantage Bandage (*Bkc) TOPICAL 1 each DAILY ROLF Administration Radiology Results: ITS Impressions Abdomen/Pelvis CT 07/19/20 18:04 IMPRESSION: 1. Cellulitis, surgical change, and tiny abscesses of the lower abdominal wall likely related to section. 2. Nonobstructing left nephrolithiasis. Labs CBC & Chem 7: 07/20/20 05:15 07/19/20 15:22 Labs: Laboratory Results - last 24 hr 07/21/20 07:50 Vancomycin Trough 9.4 L
--- NOTE | 2020-07-21 12:28 | PM.DS ---
DS: Admitting Diagnosis Admitting Diagnosis Admitting Diagnosis: Wound cellulitis DS: Discharge Diagnosis Discharge Diagnosis (1) Wound cellulitis: Code(s): L03.90 - Cellulitis, unspecified Status: Acute DS: Summary Hospital Course Reason for hospitalization: Wound infection. Hospital Course: Patient was seen in office due to increasing pain and firmness in skin on abdomen. She had been on antibiotics for wound seroma. Symptoms got worse. Discharge changed to odorous and darker color. The drainage and wound were cultured. She was recommended for admission for IV antiobiotics since her symptoms progressed on oral antibiotics. She was started on Zosyn. She had a CT to rule abscess. The CT showed findings consistent with cellulitis. Vancomycin was added. She did not have a fever at home or in the hospital. Her initial WBC was slightly elevated on admission at 11 and decreased to 9 the next day. The induration lessened and she did not have any pain on 07/21. Wound service was consulted. She received 2 days of IV antibiotics. Discharged on oral Augmentin and Vancomycin. She was instructed to follow up on September have culture results to confirm appropriate coverage from oral antibiotic. She was instructed on symptoms to call for increasing redness pain or drainage. Time spent discussing smoking cessation with patient: 3 to 10 minutes Status at Discharge Functional status at discharge: independent ambulation Overall status at discharge: patient is back to baseline Time Spent with Patient Time attestation: Total time spent providing and/or coordinating discharge services: Exam Const: General: comfortable and no acute distress Eyes: General: appearance normal, both eyes and all related structures Resp: Effort & Inspection: normal respiratory effort GI: Other: nontender, less induration, no erythema, min drainage on dressing Extrem: General: normal to inspection and no calf tenderness bilaterally Psych: Appearance: grossly normal DS: Data Data Completed and Pending Completed studies during hospitalization: CT scan Labs on day of discharge: Labs from last 24 hours 07/21/20 07:50 Vancomycin Trough 9.4 L Procedures/Treatments: IV antibiotics Discharge Plan Discharge Attending physician on discharge: Tod Delvalle Discharging Clinician: Tod Delvalle Anticipated Discharge Date/Time: 07/21/20 17:00 Patient Disposition: Home, Self-Care Activity: may shower, no straining and pelvic rest Diet: regular Wound Care Instructions: other - see discharge instructions Discharge Instructions: Continue wound dressing changes as instructed by wound care service. May take over the counter Ibuprofen or Tylenol for pain. Patient Instructions: Antibiotic Form, How to Stop Smoking (GEN) Stand Alone Forms: General Discharge Information Follow-up/Referrals: Tod Delvalle MD [Physician] - Call for Appointment (Follow up Jul 24.) Discharge Medications: New amoxicillin-pot clavulanate [Augmentin] 500-125 mg tablet 1 tablet PO Q8H Qty: 30 RF: 0 vancomycin 125 mg capsule 125 mg PO Q6H 7 Days Qty: 28 RF: 0 Continued Complete 14 mg iron- 400 mcg Tablet 1 tablet PO DAILY RF: 0 Discontinued cephalexin 250 mg capsule 250 mg PO Q8H Qty: 21 RF: 0 cholecalciferol (vitamin D3) [Vitamin D3] 50 mcg (2,000 unit) Tablet 50 mcg PO DAILY RF: 0 hydrocodone-acetaminophen 5-325 mg Tablet See Rx Instructions .ROUTE .COMPLEX PRN (Reason: Moderate Pain (4-6)) Qty: 20 RF: 0 iron RF: 0 Date of admission: 07/19/20 14:26 Primary Care Provider: PHYSICIAN,SHOP ROUTER Admitting Provider: Tod Delvalle Attending physician on admission: Tod Delvalle Condition: Stable
[2020-07-21 14:00] VITALS: BP 135/81; PULSE 89; RESP 20; TEMP 36.6; O2SAT 99
== END 2020-07-21 17:38 | disposition home or self-care (01) | DRG 561 ==
PROVIDERS: Admitting Provider Obstetrics & Gynecology; Visit Provider Obstetrics & Gynecology
DX: O86.03 Infection of obstetric surgical wound, organ and space site (principal); L03.311 Cellulitis of abdominal wall; E66.01 Morbid (severe) obesity due to excess calories; Z68.42 Body mass index [BMI] 45.0-49.9, adult; M41.9 Scoliosis, unspecified; F17.210 Nicotine dependence, cigarettes, uncomplicated
CPT/HCPCS: 36415; 74177; 80053; 80202; 85027; A9270; J2543; J3370; Q9967

== ENCOUNTER 2020-08-15 15:00 | Emergency (ER) | payer OTHER, SELFPAY ==
[2020-08-15] VITALS (9 sets, daily range): BP systolic 110–154; BP diastolic 84–110; PULSE 55–86; RESP 13–24; TEMP 35.6; O2SAT 97–100
--- NOTE | ~2020-08-15 | CT_ITS ---
EXAMINATION: CT abdomen pelvis w con DATE: 08/15/2020 18:45 INDICATION: Low abdominal pain. section incision drainage. TECHNIQUE: Computed tomography (CT) of the abdomen and pelvis was performed with 100 mL Omnipaque 350 intravenous contrast. Automated exposure control and iterative reconstruction technique were employe d. The dose-length product was 1134.48 mGy-cm. COMPARISON: CT abdomen and pelvis 07/19/2020 FINDINGS: The visualized portions of the lung bases are clear without pneumonia or pleural effusion. The heart size is normal. No pericardial effusion. The liver, gallbladder, spleen, pancreas, adrenal glands, and right kidney are normal. There is a 3 mm stone in left kidney. There are no dilated loops of bowel. The appendix is normal. The uterus demonstrates changes of section. The endometri al complex measures 4 mm in thickness, which is normal. There is fat stranding anterior to the uterus and in the lower anterior abdominal wall, consistent with inflammation. There is a small volume of g as in the subcutaneous fat in this area. There is infraumbilical skin thickening. There are no pathol ogically enlarged lymph nodes. There is no free intraperitoneal fluid. There is mild lumbar spondylos is. Thoracolumbar levoscoliosis is noted. IMPRESSION: 1. Changes of recent section. No significant drainable fluid collection. Reviewed, dictated and finalized at location A. IMPRESSION: 1. Changes of recent section. No significant drainable fluid collectio n.
[2020-08-15 15:24] LABS: Basophils Percent Auto 0.2 % (0.2-1.2); Hematocrit 37.9 % (37.0-47.0); Hemoglobin 12.2 g/dL (12.0-15.0); Immature Granulocyte Absolute 0.03 K/mm3 (0.00-0.031); Immature Granulocyte Percent A 0.3 % (0-0.5); Lymphocytes Absolute Auto 3.98 K/mm3 (0.9-3.2); Lymphocytes Percent Auto 36.9 % (18.3-44.2); Mean Corpuscular HGB Conc 32.2 g/dl (32-36); Mean Corpuscular Hemoglobin 26.6 pg (26-34); Mean Corpuscular Volume 82.6 fl (80-100); Mean Platelet Volume 9.3 fl (7.4-10.4); Monocytes Absolute Auto 0.6 K/mm3 (0.1-0.6); Monocytes Percent Auto 5.1 % (2.6-8.5); Neutrophils Absolute Auto 6.2 K/mm3 (1.3-6.7); Neutrophils Percent Auto 57.5 % (45.5-73.1); Platelet Count Result 378 k/mm3 (150-375); Red Blood Count 4.59 M/mm3 (4.2-5.4); Red Cell Distribution Width 13.7 % (11.5-14.5); White Blood Count 10.8 K/mm3 (4.5-10.0)
[2020-08-15 15:37] LABS: Alanine Aminotransferase 15 U/L (4-35); Albumin Level 4.3 g/dL (3.5-5.1); Alkaline Phosphatase 128 U/L (38-126); Anion Gap 10 mmol/L (8-16); Aspartate Amino Transferase 18 U/L (14-36); Bilirubin,Total 0.1 mg/dL (0.2-1.3); Blood Urea Nitrogen 11 mg/dL (7-17); Calcium 9.3 mg/dL (8.4-10.2); Carbon Dioxide 24 mmol/L (22-30); Chloride 109 mmol/L (98-107); Estimated Glomerular Filt Rate > 60; Glucose 106 mg/dL (65-105); Lipase 256 U/L (23-300); Potassium 4.1 mmol/L (3.4-5.0); Sodium 143 mmol/L (137-145)
[2020-08-15 17:00] LABS: Add Urine Microscopic? YES; Appearance Urine Cloudy (Clear); Bilirubin Urine Negative (Negative); Blood Urine Negative (Negative); Color Urine Yellow (Yellow); Glucose Urine UA Negative (Negative); Ketones Urine Negative (Negative); Leukocyte Esterase Ur Negative LEU/UL (Negative); Mucus Urine Rare /lpf; Nitrate Urine Negative (Negative); Protein Urine 1+ mg/dL (Negative); RBC Urine 0-2 /hpf (0-2); Specific Grav Ur 1.017 (1.001-1.035); Squamous Epithelial Cell Urine Many /hpf (Few); Urobilinogen Urine Negative mg/dL (<2.0); WBC Urine 0-3 /hpf
--- NOTE | 2020-08-15 19:49 | ED.WOUNDLAC ---
HPI - Wound/Laceration General Chief Complaint: Wound/Laceration Stated Complaint: abd infection Time Seen by Provider: 08/15/20 16:47 History of Present Illness HPI narrative: Patient is a 25-year-old female who presents to the ER with chronic lower abdominal wound. Reports its become increasingly sensitive to touch and is burning. It is packed currently. No purulent drainage or redness over the wound. She has not been having fevers or chills or sweats. She is supposed to obtain an outpatient ultrasound later in the week but due to increasing discomfort she came to the ER to be evaluated. Originally had been treated due to infection. This wound is related to a section. Related Data Allergies Allergy/AdvReac Type Severity Reaction Status Date / Time No Known Allergies Allergy Verified 08/15/20 16:52 Review of Systems Review of Systems: All systems reviewed & are unremarkable except as noted in HPI and below Constitutional: Constitutional: Denies chills and Denies fever(s) Cardiovascular: Cardiovascular: Denies chest pain, Denies rapid heart rate and Denies radiating jaw, neck or arm pain Respiratory: Respiratory: Denies cough and Denies dyspnea Gastrointestinal: Gastrointestinal: Denies abdominal pain, Denies nausea and Denies vomiting Integumentary/Breasts: Comments: burning pain over subcutaneous mass of abdomen PMFSH Past Medical History Medical History Abscess Anxiety Depression Encounter for supervision of normal in multigravida in third trimester Morbid obesity Rash of body Scoliosis Sebaceous cyst Smoker Surgical History Surgical History Hx of ovarian cystectomy Previous section Apr 2017,Apr 2019 Family History Family History Grandparent Hypertension Mother Hypertension Social History Social History Smoking packs per day: 0.5 Smoking cigarettes per day: 10.0 Years smoked: 12 Smoking pack-years: 6.00 Smoking status: Current every day smoker Tobacco type: cigarettes Second hand tobacco smoke exposure: Yes Additional smoking assessment comments: SMOKING DURING Substance use: never Gender identity (if verbalized by the patient): Female Spiritual care concerns: No Exam Narrative: Exam Narrative: GENERAL: Well-appearing, well-nourished, and in no acute distress. HEAD: Normocephalic, atraumatic. CHEST: Clear to auscultation. No respiratory distress. HEART: Regular rate and rhythm. Normal peripheral pulses. ABDOMEN: Soft, nontender, nondistended. Firma abdominal wall mass that extends to the car that is packed. No fluctuance. no cellulitis or drainage. EXTREMITIES: Normal range of motion. No edema. SKIN: Warm, dry, no rash. NEURO: Alert and oriented x3. Course Course Emergency Course: Discussed with Dr. Harry, recommends CT scan. CT is unremarkable. Pt informed of results. F/u with Dr. Delvalle. Discussed that burning is likely related to nerve injury because she had previously had numbness in the same area. Vital Signs Vital signs: Vital Signs Temperature 96.0 F L 08/15/20 15:04 Pulse Rate 55 L 08/15/20 15:04 Respiratory Rate 16 08/15/20 15:04 Blood Pressure 154/110 H 08/15/20 15:04 Pulse Oximetry 97 08/15/20 15:04 Temperature 96.0 F L 08/15/20 15:04 Pulse Rate 81 08/15/20 17:46 Respiratory Rate 16 08/15/20 17:46 Blood Pressure 117/92 H 08/15/20 17:46 Pulse Oximetry 99 08/15/20 17:46 MDM - Wound/Laceration Lab Data Result diagrams: 08/15/20 15:10 08/15/20 15:10 Labs: Lab Results 08/15/20 08/15/20 08/15/20 Range/Units 15:10 15:10 16:50 WBC 10.8 H (4.5-10.0) K/mm3 RBC 4.59 (4.2-5.4) M/mm3 Hgb 12.2 (12.0-15.0) g/dL Hct 37.9 (37.0-47.0) % MCV 82.6 (80-100
== END 2020-08-15 20:22 | disposition home or self-care (01) ==
PROVIDERS: Emergency Provider Emergency Medicine
DX: F32.9 Major depressive disorder, single episode, unspecified (principal); F17.210 Nicotine dependence, cigarettes, uncomplicated
CPT/HCPCS: 36415; 74177; 80053; 81001; 81025; 83690; 85025; 99284; Q9967

== ENCOUNTER 2020-08-27 16:45 | Outpatient (CLI) | payer OTHER, SELFPAY ==
--- NOTE | ~2020-08-27 | CT_ITS ---
EXAMINATION: CT abdomen pelvis w con DATE: 08/27/2020 17:11 INDICATION: Cutaneous abscess of the abdominal wall TECHNIQUE: Computed tomography (CT) of the abdomen and pelvis was performed with 100 cc Omnipaque 350 intravenous contrast. Automated exposure control and iterative reconstruction technique were employe d. Exam dose: 1250.02 mGy-cm total exam DLP. COMPARISON: 08/15/2020 CT abdomen pelvis FINDINGS: There is persistent infraumbilical right anterior abdominal wall subcutaneous gas and minim al fluid collection, measuring up to 5.6 cm maximal transverse and 5.2 cm anteroposterior dimension, compared to 3.7 x 2.7 cm on 08/15/2020. There is increased skin soft tissue thickening of the lower as pect of the right anterior abdominal wall. The lung bases are clear. Normal heart size. No pericardial or pleural effusion. The liver, spleen, pancreas, and adrenal glands are unremarkable. There is an approximately 3.5 mm no nobstructing left renal calculus. No urinary tract calculus or hydroureteronephrosis. The urinary bladder is unremarkable. uterus. There is mild atherosclerotic calcification and plaque formation at the distal abdominal aorta and pr oximal common iliac arteries No intraperitoneal or retroperitoneal or pelvic mass lesion or adenopathy or ascites. Small sliding hiatal hernia. Normal appendix. No bowel obstruction, bowel wall thickening, pneumatosis or intraperitoneal free air . IMPRESSION: Increased size of subcutaneous gas and minimal fluid collection in the lower anterior ab dominal wall, increased skin thickening, consistent with increased inflammatory change since Reviewed, dictated and finalized at [facility]. Reviewed, dictated and finalized at location A. IMPRESSION: Increased size of subcutaneous gas and minimal fluid collection in the lower anterior abdominal wall, increased skin thickening, consistent with increased inflammatory change since 08/15/2020
== END 2020-08-27 16:46 | disposition home or self-care (01) ==
PROVIDERS: Visit Provider Surgery
DX: L02.11 Cutaneous abscess of neck (principal); K44.9 Diaphragmatic hernia without obstruction or gangrene; I70.0 Atherosclerosis of aorta
CPT/HCPCS: 74177; Q9967

== ENCOUNTER 2020-08-30 15:17 | Observation (INO) | payer OTHER, SELFPAY ==
[2020-08-28 09:48] VITALS: BMI 45.7
[2020-08-29] VITALS (9 sets, daily range): BP systolic 103–159; BP diastolic 60–90; PULSE 82–885; RESP 16–26; TEMP 36.1–36.8; O2SAT 95–100
--- NOTE | 2020-08-29 07:10 | WPDHPUPDATE1 ---
History and Physical Update Update Date/Time: 08/29/20 07:10 History and Physical has been reviewed, including an updated exam of the patient. There are NO changes in the patient's condition. Risks, benefits, and alternatives have been discussed and questions answered. Patient agrees to proceed with procedure.
[2020-08-29] MEDS: LACTATED RINGERS 1,000 ML 30 ML IV CONT ×2 (11:10→14:13)
--- NOTE | 2020-08-29 11:56 | SUR.PREOP ---
1155-PT AWARE DR. QUIROZ DELAYS SELF ~30 MINUTES.
--- NOTE | 2020-08-29 12:04 | WPDANESEPPF ---
Anes - Initial Pre Proc Eval Procedure: Operation Date: 08/29/20 12:30 Proposed Procedures p Incision and Drainage of Abdominal Wall Abscess - Jaspreet Salcedo MD Date/Time: 08/29/20 12:04 Surgeon: Jaspreet Salcedo MD Pre Op Diagnosis: abdominal wall abscess Patient Data Age: 25 Gender: F Height: 4 ft 8 in Weight: 91.25 kg Last Vital Signs Temp 36.1 C L 08/29/20 10:22 Pulse 885 H 08/29/20 10:22 Resp 16 08/29/20 10:22 BP 126/84 08/29/20 10:22 Pulse Ox 99 08/29/20 10:22 Allergies Allergy/AdvReac Type Severity Reaction Status Date / Time No Known Allergies Allergy Verified 08/29/20 11:03 Home Medications Medication Instructions Recorded Confirmed Type sertraline 50 mg tablet 50 mg PO DAILY #90 tablet 08/23/20 08/29/20 Rx hydrocodone 5 mg-acetaminophen 325 1 tablet PO Q4H PRN #20 tablet 08/24/20 08/29/20 Rx mg tablet Patient hx anesthesia problems: none Family hx anesthesia problems: none PMFSH Past Medical History Medical History Abscess Anxiety Depression Morbid obesity Rash of body Scoliosis Sebaceous cyst Smoker Surgical History Surgical History Hx of ovarian cystectomy Previous section Apr 2017,Apr 2019, Jun 2020 Family History Family History Grandparent Hypertension Mother Hypertension Social History Social History Smoking packs per day: 0.5 Smoking cigarettes per day: 10.0 Years smoked: 13 Smoking pack-years: 6.50 Smoking status: Current every day smoker Tobacco type: cigarettes Second hand tobacco smoke exposure: Yes Additional smoking assessment comments: SMOKING DURING Alcohol intake: current Alcohol use details: 1-2/YEAR Substance use: never Substance use type: does not use Living arrangements: with family Gender identity (if verbalized by the patient): Female Spiritual care concerns: No Anes - Eval Final PreProcedure Day of Procedure 08/29/20 12:04 Patient weight: morbidly obese Heart: regular rate and rhythm Lungs: clear to auscultation Airway: Mallampati scale class II Neurological: alert and oriented Last oral intake: >/= 8 hours ASA classification: III Emergent: no Anesthetic plan: proceed Anesthesia type and monitoring: general LMA and standard monitoring Informed Consent: The patient's anesthetic plan and its attendant risks and benefits were discussed with the patient/family/POA. Questions were solicited and answers provided to the satisfaction of the patient/family/POA.
[2020-08-29] MEDS: ceFAZolin 2 GM/D5W 50 ML 2 GM/50 ML BAG IVPB (12:55)
[2020-08-29] MEDS: fentaNYL CITRATE INJ (*CRX) 100 MCG/2 ML VIAL 25 MCG IV PUSH ×4 (14:06→14:27)
--- NOTE | 2020-08-29 14:33 | P.OP_ITS ---
Procedure Note - Detailed Date of procedure: 08/29/20 Pre-op diagnosis: abdominal wall abscess Abdominal wall abscess Post-op diagnosis: same Procedure performed: Incision and drainage complex abdominal wall abscess Description of procedure: The patient was taken to surgery and induced into general anesthesia. The abdomen was prepped and draped in standard fashion. I initially probed the opening at the right lateral aspect of the section scar. I tried to dilate the opening as there was quite a bit of purulent fluid coming out. Using a curved clamp, I grasped some retained packing the patient had been using to pack the wound at home. This was only about a 4-5 cm piece. It was removed but on continuing to probe the abscess cavity it was very extensive in the right side of the abdominal panniculus. I felt the only way to adequately drain it would be to open it fully. I used the cautery to extend the opening at the incision cephalad at 90? from the incision. The I extended this up to the uppermost aspect of the abscess. It extended most of the length of the panniculus. There was a lot of inflammatory, cobblestone type subcutaneous within the abscess cavity. There was still extensive pockets to particularly the right lateral aspect. I opened this skin and subcutaneous as well. Some of the overhanging skin and subcu that was judged to be a hindrance to wound healing was then excisionally debrided. Cautery was used for hemostasis. I excised some skin and subcutaneous from both the right side and the left side. This still left plenty of skin to allow secondary closure of the wound. I looked carefully for any sign of a fistula with the colon or small bowel. No colonic or enteric spillage was noted anywhere in the wound. I debrided some necrotic subcutaneous that was particularly indurated and inflamed. Eventually the wound looked good and was opened widely. Hemostasis was achieved with the cautery. I dressed the wound with Xeroform gauze followed by Kerlix roll. Bulky ABDs were then placed and the wound was dressed with Medipore tape. The patient was awakened extubated and taken to recovery in good condition. Estimated blood loss 20 cc. Sponge and needle counts were correct x2. Anesthesia: GETA Surgeon: Jaspreet Salcedo MD Employee Benefits Attorney: Filippo [employer] Estimated blood loss (mL): 20 Drains: No Packing: Yes Pathology: none sent Complications: None Condition: stable Disposition: PACU Findings: Extensive subcutaneous abdominal wall abscess in the right side of the abdominal panniculus and draining through a small area of the scar. No suture granuloma or evidence of enterocutaneous fistula noted.
[2020-08-29] MEDS: LACTATED RINGERS 1,000 ML 100 ML IV CONT (15:25)
[2020-08-29] MEDS: HYDROcodone/acetaminophen (*CRX) 5-325 MG TABLET 1 TAB PO (18:50)
[2020-08-29] MEDS: ENOXAPARIN 30 MG/0.3 ML SYRINGE SUB-Q (22:09)
[2020-08-30 05:10] VITALS: TEMP 38.3
[2020-08-30] MEDS: ACETAMINOPHEN 500 MG TABLET PO (05:10)
[2020-08-30 05:16] LABS: Hematocrit 30.8 % (37.0-47.0); Hemoglobin 9.6 g/dL (12.0-15.0); Mean Corpuscular HGB Conc 31.2 g/dl (32-36); Mean Corpuscular Hemoglobin 26.1 pg (26-34); Mean Corpuscular Volume 83.7 fl (80-100); Mean Platelet Volume 9.1 fl (7.4-10.4); Platelet Count Result 374 k/mm3 (150-375); Red Blood Count 3.68 M/mm3 (4.2-5.4); Red Cell Distribution Width 13.2 % (11.5-14.5); White Blood Count 8.1 K/mm3 (4.5-10.0)
[2020-08-30] MEDS: HYDROcodone/acetaminophen (*CRX) 5-325 MG TABLET 1 TAB PO (05:16)
[2020-08-30] MEDS: LACTATED RINGERS 1,000 ML 100 ML IV CONT (05:19)
[2020-08-30 05:21] VITALS: TEMP 36.9
[2020-08-30 05:24] VITALS: BP 125/81; PULSE 85; RESP 16; TEMP 38.3; O2SAT 97
[2020-08-30 05:33] LABS: Anion Gap 2 mmol/L (8-16); Blood Urea Nitrogen 5 mg/dL (7-17); Calcium 8.4 mg/dL (8.4-10.2); Carbon Dioxide 29 mmol/L (22-30); Chloride 109 mmol/L (98-107); Estimated Glomerular Filt Rate > 60; Glucose 86 mg/dL (65-105); Potassium 3.7 mmol/L (3.4-5.0); Sodium 140 mmol/L (137-145)
[2020-08-30 08:00] VITALS: TEMP 36.5
[2020-08-30] MEDS: SERTRALINE HCL 50 MG TABLET PO (08:53)
[2020-08-30] MEDS: polyethylene glycoL 3350 17 GM POWD.PACK PO (08:53)
[2020-08-30] MEDS: ENOXAPARIN 30 MG/0.3 ML SYRINGE SUB-Q ×2 (08:54→22:54)
--- NOTE | 2020-08-30 09:49 | WPDANESPN ---
Anes - Prog Note Post-Op Date/Time: 08/30/20 09:49 Cardiovascular status: normal Respiratory status: normal Airway patency: baseline Mental status: baseline Post-Op hydration status: normal Vital Signs: Last Vital Signs Temp 38.3 C H 08/30/20 05:24 Pulse 85 08/30/20 05:24 Resp 16 08/30/20 05:24 BP 125/81 08/30/20 05:24 Pulse Ox 97 08/30/20 05:24 Pain Score (VAS): 0/10. Patient resting in bed at time of assessment, appears comfortable. I/O: Intake & Output 08/29/20 08/30/20 08/30/20 23:59 07:59 15:59 Intake Total 1000 Balance 1000 Laboratory Tests 08/30/20 04:43 08/30/20 04:43 08/30/20 08/30/20 04:43 04:43 WBC 8.1 RBC 3.68 L Hgb 9.6 L Hct 30.8 L MCV 83.7 MCH 26.1 MCHC 31.2 L RDW 13.2 Plt Count 374 MPV 9.1 Sodium 140 Potassium 3.7 Chloride 109 H Carbon Dioxide 29 Anion Gap 2 L BUN 5 L D Creatinine 0.50 L Estim Creat Clear Calc Not Reportable Estimated GFR > 60 Glucose 86 Calcium 8.4 Post-procedural complaints: none Patient Feedback: Patient satisfied with anesthetic care.
[2020-08-30] MEDS: HYDROcodone/acetaminophen (*CRX) 10-325 MG TABLET 1 TAB PO ×2 (13:07→22:52)
[2020-08-30 14:00] VITALS: BP 126/80; PULSE 75; RESP 18; TEMP 36.6; O2SAT 100
--- NOTE | 2020-08-30 14:32 | PM.PNGS ---
Progress Note: A&P Assessment and Plan (1) Abdominal wall abscess: Code(s): L02.211 - Cutaneous abscess of abdominal wall Status: Acute Assessment and Plan: Lower abdominal wound looks good today. Will initiate wound VAC therapy. I have spoke with care coordination to work on getting approval for a home wound VAC. Hopefully she will be able to be discharged home tomorrow if the wound VAC is able to be coordinated through [facility]. Pain is well controlled and she is tolerating her diet. D/C IV fluids. (2) Smoker: Code(s): F17.200 - Nicotine dependence, unspecified, uncomplicated Status: Acute Assessment and Plan: Encouraged smoking cessation. (3) Morbid obesity: Code(s): E66.01 - Morbid (severe) obesity due to excess calories Status: Chronic Additional Plan Discussed plan of care with Dr. Salcedo. Subjective Subjective Date/Time Seen: 08/30/20 14:32 Post Op day: 1 (Incision and drainage complex abdominal wall abscess) Patient reports: no new complaints, pain is less, tolerating a regular diet and afebrile Interval history: Patient seen with Dr. Salcedo and the wound clinic nurses. She reports pain is well controlled with current analgesics. Tolerating her diet without complaints. No other acute issues. Review of Systems Review of Systems: All systems reviewed & are unremarkable except as noted in HPI and below Exam Const: General: comfortable, no acute distress, alert and awake Nutritional Appearance: obese Orientation/consciousness: patient oriented x3 Skin: Other: Large open lower abdominal wound that looks good today with no purulent drainage or significant necrotic tissue noted. Applied a wound VAC with wound nurses. Extrem: General: no clubbing, cyanosis or edema and no calf tenderness bilaterally Psych: Mental Status: mental status grossly normal Insight: Good insight present (Psych) Judgement: Good judgement present (Psych) Objective Data Vital Signs Vital Signs: Vital Signs - 24 hr 08/29/20 14:40 08/29/20 14:50 08/29/20 22:00 Temperature 97.4 F L Pulse Rate 90 87 82 Respiratory Rate 20 20 18 Blood Pressure 107/70 106/69 103/60 Pulse Oximetry 97 97 96 08/30/20 05:10 08/30/20 05:21 08/30/20 05:24 Temperature 100.9 F H 98.4 F 100.9 F H Pulse Rate 85 Respiratory Rate 16 Blood Pressure 125/81 Pulse Oximetry 97 08/30/20 08:00 08/30/20 14:00 Temperature 97.7 F 97.9 F Pulse Rate 75 Respiratory Rate 18 Blood Pressure 126/80 Pulse Oximetry 100 Intake/Output Intake/Output: Intake & Output 08/27/20 08/28/20 08/29/20 08/30/20 23:59 23:59 23:59 23:59 Intake Total 800 2140 Balance 800 2140 Meds/Results Medications: Active Medications Generic Name Dose Route Start Last Admin Trade Name Freq PRN Reason Stop Dose Admin Acetaminophen 500 mg 08/29/20 14:55 08/30/20 05:10 Acetaminophen 500 Mg Tablet PO 500 mg Q6H PRN Administration Mild Pain (1-3) or Fever Hydrocodone Bitart/Acetaminophen 1 tab 08/29/20 14:55 08/30/20 05:16 Hydrocodone/Acetaminophen (*Crx) 5-325 Mg Tablet PO 1 tab Q4H PRN Administration Pain Rated 4-6 Hydrocodone Bitart/Acetaminophen 1 tab 08/29/20 14:55 08/30/20 13:07 Hydrocodone/Acetaminophen (*Crx) 10-325 Mg Tablet PO 1 tab Q6H PRN Administration Pain Rated 7-10 Diphenhydramine HCl 25 mg 08/29/20 14:55 Diphenhydramine Hcl Inj 50 Mg/Ml Vial IV PUSH Q6H PRN Itching Enoxaparin Sodium 30 mg 08/29/20 21:00 08/30/20 08:54 Enoxaparin 30 Mg/0.3 Ml Syringe SUB-Q 30 mg Q12HR ORLF Administration Morphine Sulfate 1 mg 08/29/20 14:55 Morphine Sulfate (*Crx) 2 Mg/Ml Inj IV PUSH Q2H PRN Pain Rated 4-6 Morphine Sulfate 2 mg 08/29/20 14:55 Morphine Sulfate (*Crx) 4 Mg/Ml Inj IV PUSH Q2H PRN Pain Rated 7-10 Ondansetron HCl 4 mg 08/29/20 14:55 Ondansetron Inj 4 Mg/2 Ml Vial IV PUSH Q4H PRN Nausea And V
[2020-08-30] MEDS: MORPHINE SULFATE (*CRX) 4 MG/ML INJ 2 MG IV PUSH (14:36)
--- NOTE | 2020-08-30 16:59 | PM.PNGS ---
Progress Note: A&P Assessment and Plan (1) Abdominal wall abscess: Code(s): L02.211 - Cutaneous abscess of abdominal wall Status: Acute Assessment and Plan: Abscess drained in some of the wall debrided yesterday. Wound looks very good today. Will place wound VAC. Probably home tomorrow with outpatient wound VAC therapy if this can be arranged by then. Subjective Subjective Date/Time Seen: 08/30/20 16:59 Post Op day: 1 Patient reports: feels better, pain is less and tolerating a regular diet Exam GI: Inspection: incision (Abscess wound looks clean and healthy, no purulence, no enteric content) and obesity GI Palp: Yes Soft to palpation and Yes Tenderness to palpation present (GI) Objective Data Vital Signs Vital Signs: Vital Signs - 24 hr 08/29/20 22:00 08/30/20 05:10 08/30/20 05:21 Temperature 36.3 C L 38.3 C H 36.9 C Pulse Rate 82 Respiratory Rate 18 Blood Pressure 103/60 Pulse Oximetry 96 08/30/20 05:24 08/30/20 08:00 08/30/20 14:00 Temperature 38.3 C H 36.5 C 36.6 C Pulse Rate 85 75 Respiratory Rate 16 18 Blood Pressure 125/81 126/80 Pulse Oximetry 97 100 Intake/Output Intake/Output: Intake & Output 08/27/20 08/28/20 08/29/20 08/30/20 23:59 23:59 23:59 23:59 Intake Total 800 3140 Balance 800 3140 Meds/Results Medications: Active Medications Generic Name Dose Route Start Last Admin Trade Name Freq PRN Reason Stop Dose Admin Acetaminophen 500 mg 08/29/20 14:55 08/30/20 05:10 Acetaminophen 500 Mg Tablet PO 500 mg Q6H PRN Administration Mild Pain (1-3) or Fever Hydrocodone Bitart/Acetaminophen 1 tab 08/29/20 14:55 08/30/20 05:16 Hydrocodone/Acetaminophen (*Crx) 5-325 Mg Tablet PO 1 tab Q4H PRN Administration Pain Rated 4-6 Hydrocodone Bitart/Acetaminophen 1 tab 08/29/20 14:55 08/30/20 13:07 Hydrocodone/Acetaminophen (*Crx) 10-325 Mg Tablet PO 1 tab Q6H PRN Administration Pain Rated 7-10 Diphenhydramine HCl 25 mg 08/29/20 14:55 Diphenhydramine Hcl Inj 50 Mg/Ml Vial IV PUSH Q6H PRN Itching Enoxaparin Sodium 30 mg 08/29/20 21:00 08/30/20 08:54 Enoxaparin 30 Mg/0.3 Ml Syringe SUB-Q 30 mg Q12HR ROLF Administration Morphine Sulfate 1 mg 08/29/20 14:55 Morphine Sulfate (*Crx) 2 Mg/Ml Inj IV PUSH Q2H PRN Pain Rated 4-6 Morphine Sulfate 2 mg 08/29/20 14:55 08/30/20 14:36 Morphine Sulfate (*Crx) 4 Mg/Ml Inj IV PUSH 2 mg Q2H PRN Administration Pain Rated 7-10 Ondansetron HCl 4 mg 08/29/20 14:55 Ondansetron Inj 4 Mg/2 Ml Vial IV PUSH Q4H PRN Nausea And Vomiting Polyethylene Glycol 17 gm 08/30/20 09:00 08/30/20 08:53 Polyethylene Glycol 3350 17 Gm Powd.Pack PO 17 gm QAM ROLF Administration Sertraline HCl 50 mg 08/30/20 09:00 08/30/20 08:53 Sertraline Hcl 50 Mg Tablet PO 50 mg DAILY ROLF Administration Labs Labs: Laboratory Results - last 24 hr 08/30/20 08/30/20 04:43 04:43 WBC 8.1 RBC 3.68 L Hgb 9.6 L Hct 30.8 L MCV 83.7 MCH 26.1 MCHC 31.2 L RDW 13.2 Plt Count 374 MPV 9.1 Sodium 140 Potassium 3.7 Chloride 109 H Carbon Dioxide 29 Anion Gap 2 L BUN 5 L D Creatinine 0.50 L Estim Creat Clear Calc Not Reportable Estimated GFR > 60 Glucose 86 Calcium 8.4
[2020-08-30 22:02] VITALS: BP 130/84; PULSE 83; RESP 16; TEMP 36.6; O2SAT 98
[2020-08-31 05:51] VITALS: BP 108/69; PULSE 89; RESP 16; TEMP 36.7; O2SAT 98
[2020-08-31] MEDS: polyethylene glycoL 3350 17 GM POWD.PACK PO (08:05)
[2020-08-31] MEDS: ENOXAPARIN 30 MG/0.3 ML SYRINGE SUB-Q (08:05)
[2020-08-31] MEDS: HYDROcodone/acetaminophen (*CRX) 5-325 MG TABLET 1 TAB PO ×2 (08:05→12:22)
[2020-08-31] MEDS: SERTRALINE HCL 50 MG TABLET PO (08:05)
[2020-08-31] MEDS: metroNIDAZOLE 250 MG TABLET 500 MG XX (12:22)
[2020-08-31 14:00] VITALS: BP 123/79; PULSE 82; RESP 18; TEMP 36.1; O2SAT 99
--- NOTE | 2020-08-31 14:24 | P.DS_ITS ---
DS: Admitting Diagnosis Admitting Diagnosis Admitting Diagnosis: * Abdominal wall abscess * History recent section * Morbid obesity * Smoker DS: Discharge Diagnosis Discharge Diagnosis (1) Abdominal wall abscess: Code(s): L02.211 - Cutaneous abscess of abdominal wall Status: Acute (2) Status post section: Code(s): Z98.891 - History of uterine scar from previous surgery Status: Chronic (3) Morbid obesity: Code(s): E66.01 - Morbid (severe) obesity due to excess calories Status: Chronic (4) Smoker: Code(s): F17.200 - Nicotine dependence, unspecified, uncomplicated Status: Chronic DS: Summary Hospital Course Hospital Course: Patient was seen in the office earlier this week. She had a history of a Caesarean section back in June. 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 She had CT scans at the end of July and prior to admission showing no evidence of an enterocutaneous fistula. Previous cultures had shown enterococcus faecalis. She was taken to surgery on the day of admission 08/29/2020. A large abscess in the right side of her abdominal panniculus communicating with a small area on the lateral aspect of the scar was found. This was opened widely and some of the excess tissue debrided. On 08/30 2020 the wound looked good. A wound VAC was placed at the bedside. Arrangements were made for her to have a home wound VAC. She was kept in the hospital on 08/30. Wound VAC approval was achieved on 08/31. She had the [facility] wound VAC placed on 08/31 and was able to be discharged. Time Spent with Patient Time attestation: Total time spent providing and/or coordinating discharge services: Exam GI: Inspection: other (Abscess cavity well drained. Wound healing well.) Discharge Plan Discharge Attending physician on discharge: Jaspreet Zurita Discharging Clinician: Jaspreet Zurita Anticipated Discharge Date/Time: 08/31/20 16:26 Patient Disposition: Home, Self-Care Activity: as tolerated Diet: regular Wound Care Instructions: follow printed instructions and keep dressing dry Discharge Instructions: Follow up appointments at the wound center are Thursday09/03/20 at 1:30pm and 09/06/20 at 1:30pm. Bring a black foam and cannister to your appointment. Patient Instructions: How to Stop Smoking (DC) Follow-up/Referrals: Jaspreet Zurita MD [Physician] - 2 Weeks (Dr. zurita will see patient in wound clinic in 2 weeks.) Discharge Medications: New hydrocodone-acetaminophen 5-325 mg tablet 1 - 2 tablet PO Q6H PRN (Reason: pain) Qty: 14 RF: 0 polyethylene glycol 3350 [Miralax] 17 gram Powder In Packet 17 g PO QAM Qty: 14 RF: 0 Continued sertraline [Zoloft] 50 mg tablet 50 mg PO DAILY Qty: 90 RF: 0 hydrocodone-acetaminophen 5-325 mg tablet 1 tablet PO Q4H PRN (Reason: pain) Qty: 20 RF: 0 Date of admission: 08/30/20 15:17 Primary Care Provider: PHYSICIAN,DRAFTING SUPERVISOR Admitting Provider: Jaspreet Zurita Attending physician on admission: Jaspreet Zurita Condition: Improved
== END 2020-08-31 17:15 | disposition home or self-care (01) ==
LOC: ANHSURGERY 15:28 → ANH2MED 15:28
PROVIDERS: Admitting Provider Surgery; Visit Provider Surgery
PROC: (CPT 10061; principal; 2020-08-29 12:30)
DX: O86.01 Infection of obstetric surgical wound, superficial incisional site (principal); L02.211 Cutaneous abscess of abdominal wall; B95.2 Enterococcus as the cause of diseases classified elsewhere; F41.8 Other specified anxiety disorders; E66.01 Morbid (severe) obesity due to excess calories; Z68.42 Body mass index [BMI] 45.0-49.9, adult; F17.210 Nicotine dependence, cigarettes, uncomplicated
CPT/HCPCS: 10061; 36415; 80048; 85027; A9270; G0378; G0379; J0690; J1170; J1650; J2250; J2270; J2405; J2704; J3010; J7120

== ENCOUNTER 2020-10-25 11:29 | Emergency (ER) | payer OTHER, SELFPAY ==
--- NOTE | ~2020-10-25 | XR_ITS ---
EXAMINATION: XR chest 2V EXAM DATE: 10/25/2020 12:26 INDICATION: cough diff breathing temp x 2 days. TECHNIQUE: Frontal and lateral projections of the chest obtained and reviewed. There is no prior darline dy for comparison. FINDINGS: There is moderate mid thoracic dextroscoliosis. The lungs are clear. There are no pleural effusions. The cardiomediastinal silhouette is within normal limits. There is no pneumothorax suspe cted. IMPRESSION: No acute cardiopulmonary findings. Moderate mid thoracic dextroscoliosis. Reviewed, dictated and finalized at location A. IMPRESSION: No acute cardiopulmonary findings. Moderate mid thoracic dextroscol iosis.
[2020-10-25 11:39] VITALS: BP 128/87; PULSE 103; RESP 16; TEMP 37.8; O2SAT 98
--- NOTE | 2020-10-25 11:58 | ED.SKABFB ---
HPI - Skin/Abscess/Foreign Bdy General Chief complaint: Upper Respiratory Infection Stated complaint: cough/diarrhea/shortness of breathe Time Seen by Provider: 10/25/20 12:00 Source: patient Mode of arrival: ambulatory Limitations: no limitations History of Present Illness HPI narrative: Angela Horn is a 25 yo female [facility] complaints of a fever, diarrhea, and pain. The diarrhea started last night she has muscle pain and just feels poorly with a sore throat patient did not receive the Covid vaccine She is currently dealing with a abdominal wound VAC post that was in place for 50 days. After the she got infected and they try to treat with multiple antibiotics but were unsuccessful without and ended up having to have abdominal surgery to remove necrotic tissue and has been doing packing to heal through by secondary intention. Related Data Allergies Allergy/AdvReac Type Severity Reaction Status Date / Time No Known Allergies Allergy Verified 10/25/20 12:17 Review of Systems Review of Systems: Narrative: CONSTITUTIONAL: has fever, chills, sweats. EYES: Denies visual changes, redness, discharge. ENT: Denies rhinorrhea, congestion, has sore throat, otalgia. CARDIOVASCULAR: Denies chest pain, palpitations, edema. RESPIRATORY: Denies dyspnea, wheezing, has cough GASTROINTESTINAL: Denies abdominal pain, nausea, vomiting, has diarrhea. GENITOURINARY: Denies dysuria, hematuria, abnormal discharge SKIN: Denies rash or itching. NEUROLOGIC: Denies numbness, or focal weakness. PSYCHIATRIC: Denies anxiety or depression. [facility] Past Medical History Medical History Abscess Anxiety Depression Morbid obesity Rash of body Scoliosis Sebaceous cyst Smoker Surgical History Surgical History Hx of ovarian cystectomy Previous section Apr 2017,Apr 2019, Jun 2020 Family History Family History Grandparent Hypertension Mother Hypertension Social History Social History Smoking packs per day: 0.5 Smoking cigarettes per day: 10.0 Years smoked: 13 Smoking pack-years: 6.50 Smoking status: Current every day smoker Second hand tobacco smoke exposure: Yes Alcohol intake: current Substance use: never Substance use type: does not use Gender identity (if verbalized by the patient): Female Spiritual care concerns: No Comments At time of signature, I agree with nursing past medical, surgical, social and family history. There is no relevant family history pertinent to the presenting complaint. Exam Narrative: Exam Narrative: GENERAL: This is a well-nourished, well-developed patient, in moderate distress. Deep cough HEAD: normocephalic, atraumatic. EYES: Sclera clear/white. Vision is grossly intact. EARS: External ears normal, auditory canals clear Hearing grossly intact. NOSE: External nose normal without nasal discharge, nares with redness, has rhinorrhea. THROAT: Mucous membranes moist, posterior pharynx erythema NECK: Neck supple, non-tender CARDIOVASCULAR: Tachycardic rate and rhythm without murmurs, gallops, or rubs. RESPIRATORY: Diminished to auscultation. Breath sounds equal bilaterally. Has wheezes, rales, has rhonchi. GASTROINTESTINAL: Abdomen soft, non-tender, SKIN: warm, intact with no suspicious lesions or rash, good texture and turgor. NEURO: awake, alert, and oriented to person, place and time. There were no obvious focal neurologic abnormalities. Steady gait EXTREMITIES: Normal range of motion. BACK: Nontender without deformity Course Course Emergency Course: [facility] of diarrhea fever and muscle aches that started 2 days ago diarrhea started last night; fever today along with myalgia. He had recent abdominal surgery and is very worried Ph
[2020-10-26 19:50] LABS: SARS-CoV-2 RNA PCR Negative
== END 2020-10-25 12:51 | disposition home or self-care (01) ==
PROVIDERS: Emergency Provider Nurse Practitioner
DX: J06.9 Acute upper respiratory infection, unspecified (principal); Z20.822 Contact with and (suspected) exposure to COVID-19; F17.210 Nicotine dependence, cigarettes, uncomplicated; E66.01 Morbid (severe) obesity due to excess calories; M41.9 Scoliosis, unspecified
CPT/HCPCS: 71046; 87081; 87426; 87804; 87880; 99213; C9803; G0463; U0003; U0005

== ENCOUNTER 2020-11-05 07:32 | Outpatient (RCR) | payer OTHER, SELFPAY ==
--- NOTE | 2020-10-04 17:22 | WPDWOUNDNOTE ---
Wound Care Note Date/Time: 10/04/20 17:22 History: Patient is a 25-year-old woman with morbid obesity, abdominal panniculus, smoker, and had a repeat on July 02, 2020. While she had been seen by me for inflammatory wound complications in the mid abdomen. She underwent excision and debridement with chronic wound care. Pathology on this tissue showed fat necrosis, acute and chronic inflammation and fibrosis. After her last June, she again developed wound complications this time on the right side of the section wound. This wound cultured probe patella and Enterococcus at different times. Her wound problem started about 2 weeks after the . I saw her in August and she had a significant wound abscess. She was taken to surgery and on August 29, she had incision and drainage of a very large wound abscess in the right side of the abdominal panniculus. She has been on a negative pressure wound device from [employer] since then. She is seen today in the wound clinic for follow-up. She has been feeling better but still has quite a bit of pain and tenderness on the right side of the abdomen and wound. Wound history: Please see above. Has been improving with wound VAC therapy. Wound approximation: No ( Remains open with tenderness particularly on the right side) Wound width: 11.3 cm Wound length: 2.5 cm Wound depth: 2.5 cm Drainage: serosanguineous Surrounding tissue appearance: dry, healthy Tunneling: none Percentage granulation tissue: 80% Treatment/Procedures: I debrided some fat necrosis in the wound particularly on the left side and a small amount on the right side. The right side was quite tender. Dressings: Crush Flagyl placed in the wound for odor control. Continue wound VAC care as before. She is seen twice a week in the wound clinic. I will see her again in 3 weeks. Assessment and Plan Assessment and plan (1) Abdominal wall abscess: Code(s): L02.211 - Cutaneous abscess of abdominal wall Status: Chronic Assessment and Plan: Abscess resolved but chronic abdominal wound remains to heal. Aside from the tenderness and discomfort on the right side of the wound she has really no complaints. Recommend continuing metronidazole crushed and applied to the wound as well as negative pressure wound therapy per the [employer] a suction device. Continue follow-up in the Wound Clinic. I will see her in 2-3 weeks. (2) Smoker: Code(s): F17.200 - Nicotine dependence, unspecified, uncomplicated Status: Chronic Assessment and Plan: Advised to quit. (3) Delivery by elective section: Code(s): O82 - Encounter for delivery without indication Status: Chronic Assessment and Plan: Delivered 07/02/2020. Also had tubal ligation. Review of Systems Review of Systems: All systems reviewed & are unremarkable except as noted in HPI and below ( Wound note and below) Constitutional: Constitutional: Reports as per HPI, Reports no additional constitutional complaints, Denies chills, Denies fever(s), Denies night sweats and Denies poor appetite Exam GI: Inspection: non-distended and incision ( abdominal wound pink granulating over much of the wound bed) GI Palp: Yes abdominal tenderness ( right side of wound and abdomen tender.) and Yes Soft to palpation
--- NOTE | 2020-10-16 11:56 | WPDWOUNDNOTE ---
Wound Care Note Date/Time: 10/16/20 11:56 History: Patient with history of chronic inflammatory process of her abdominal panniculus. Patient had and had wound abscess. Wound history: I and D was performed of large wound abscess primarily in her abdominal panniculus following . She has been using wound VAC. At her last visit, I debrided some of the necrotic subcutaneous tissue of the wound. Wound approximation: No Drainage: Serosanguineous Surrounding tissue appearance: Some maceration Tunneling: Minimal Percentage granulation tissue: 95% Treatment/Procedures: None today. Dressings: Will take a break from wound VAC therapy for least a week. She will apply gentamicin ointment to the wound surface daily. Silver rope will then be applied to all wound surfaces and dry gauze dressing. This will be done daily as well. She will follow up in the Wound Clinic in 1 week. I will see her in 2 weeks. If progresses stagnates, may need to go back to wound VAC therapy. Apply tone after tape antifungal powder to skin around wound with daily dressing as well. Assessment and Plan Assessment and plan (1) Open wound anterior abdominal wall: Qualifiers: Encounter type: subsequent encounter Qualified Code(s): S31.109D - Unspecified open wound of abdominal wall, unspecified quadrant without penetration into peritoneal cavity, subsequent encounter Code(s): S31.109A - Unspecified open wound of abdominal wall, unspecified quadrant without penetration into peritoneal cavity, initial encounter Status: Chronic Assessment and Plan: Take a break from wound VAC therapy as mentioned, Talnaftate powder to skin around the wound as it is somewhat macerated. Gentamicin 0.1% ointment [address] then [address] silver rope. Dry gauze and change daily. Improving. Wound is smaller with less tracking. Less painful as well. (2) Smoker: Code(s): F17.200 - Nicotine dependence, unspecified, uncomplicated Status: Chronic Exam GI: Inspection: incision (Wound pink granulating much smaller, minimal debris) and Pannus present
--- NOTE | 2020-10-25 12:32 | PCWOUND ---
WOCN NOTE Patient called to cancel appointment for today. she is at urgent care with illness, vomiting, diarrhea, and trouble breathing.
--- NOTE | 2020-10-29 21:01 | WPDWOUNDNOTE ---
Wound Care Note Date/Time: 10/29/20929 History: Open wound s/p drainage C section wound abscess. Has panniculus and smokes. Wound history: Negative pressure wound device previously ([employer]) was d/c'd. Wound continues to improve with decreased size, less tender. Now using gentamycin ointment to wound bed but Santyl to areas of fat necrosis daily with gauze and ABD. Wound approximation: No Wound width: 7.0cm Wound length: 1.7 cm Wound depth: 2.9 cm Drainage: serosanguinous pink drainage Surrounding tissue appearance: dry, no breakdown Tunneling: none Percentage granulation tissue: 100 Treatment/Procedures: none Dressings: Gentamycin ointment to wound bed. Santyl to fat necrosis. Gauze and ABD daily. Assessment and Plan Assessment and plan (1) Open wound anterior abdominal wall: Qualifiers: Encounter type: subsequent encounter Qualified Code(s): S31.109D - Unspecified open wound of abdominal wall, unspecified quadrant without penetration into peritoneal cavity, subsequent encounter Code(s): S31.109A - Unspecified open wound of abdominal wall, unspecified quadrant without penetration into peritoneal cavity, initial encounter Status: Chronic Assessment and Plan: continues to heal. Continue Santyl and gentamycin ointment daily. Recheck in wound clinic in 2-3 weeks. (2) Smoker: Code(s): F17.200 - Nicotine dependence, unspecified, uncomplicated Status: Chronic (3) Morbid obesity: Code(s): E66.01 - Morbid (severe) obesity due to excess calories Status: Chronic Review of Systems Review of Systems: All systems reviewed & are unremarkable except as noted in HPI and below (wound care note) Constitutional: Constitutional: Denies anorexia, Denies body ache(s), Denies chills, Denies fever(s) and Denies night sweats Exam GI: Inspection: non-distended, Pannus present, obesity and other (open wound pink and granulating, nontender) GI Palp: Yes Soft to palpation and No Tenderness to palpation present (GI)
== END 2020-11-06 23:59 | disposition home or self-care (01) ==
LOC: ANHWOC 07:32
PROVIDERS: PCP Obstetrics & Gynecology; Visit Provider Surgery
DX: O86.00 Infection of obstetric surgical wound, unspecified (principal)
CPT/HCPCS: 11042; 97606; 99212; A9270; G0463

== ENCOUNTER 2021-01-31 07:38 | Outpatient (RCR) | payer OTHER, SELFPAY ==
--- NOTE | 2020-11-26 14:10 | PCWOUND ---
WOCN NOTE patient did not show up for appointment, placed call to reschedule.
--- NOTE | 2020-12-03 13:01 | WPDWOUNDNOTE ---
Wound Care Note Date/Time: 12/03/20 13:01 Patient very upset in wound clinic today. Reports that her daughter has been kicking her and having uncontrolled fairly violent thrashing episodes. They are in the process of having her evaluated and has been suggested she has autism. The kicking has been just to the right of her open wound which has been sore any way. This has made it even more uncomfortable. She is under lot of stress at home and is having difficulties. She has been, however, been faithfully applying wound care as we have previously recommended. Wound history: Recurrent wound infection from Wound approximation: No Wound width: 7 cm Wound length: 2.2 cm Wound depth: 2.2 cm Drainage: pink serosanguineous Surrounding tissue appearance: dry, healthy Tunneling: no Percentage granulation tissue: 100 Treatment/Procedures: none Dressings: will DC the Santyl dressing changes. Continue gentamicin antimicrobial ointment to the wound daily. Place gauze pads and ABD over the wound. Will recheck her again in 3 weeks. Assessment and Plan Assessment and plan (1) Wound infection following section, : Code(s): O86.00 - Infection of obstetric surgical wound, unspecified Status: Chronic Assessment and Plan: gentamicin ointment daily with gauze and ABDs. Recheck in 3 weeks. Review of Systems Review of Systems: All systems reviewed & are unremarkable except as noted in HPI and below Constitutional: Constitutional: Denies chills and Denies fever(s) Gastrointestinal: Gastrointestinal: Reports as per HPI and Reports abdominal pain ( Pain and tenderness just to the right of the open wound) Exam GI: Inspection: incision ( Open wound smaller and healing well.) and other ( lower abdominal midline wound is very tender especially on the right ) GI Palp: Yes abdominal tenderness ( Right lower quadrant)
--- NOTE | 2020-12-24 10:06 | PCWOUND ---
WOCN NOTE patient called to cancel appointment due to Illness. Patient was supposed to see Dr. Salcedo today, Will contact Dr office to get new appointment. Will contact patient once received.
--- NOTE | 2021-01-10 07:30 | PCWOUND ---
WOCN NOTE patient called stating that she wouldn't be able to make her 01/10/21 appointment due to having her youngest child being [facility] to [facility] and she would be the one staying with him. Will contact us once he's discharged to make new appointment.
== END 2021-02-10 23:59 | disposition home or self-care (01) ==
LOC: ANHWOC 07:38
PROVIDERS: Visit Provider Surgery
DX: Z48.01 Encounter for change or removal of surgical wound dressing (principal)
CPT/HCPCS: 99212; 99213; A9270; G0463

== ENCOUNTER 2023-01-02 18:14 | Emergency (ER) | payer OTHER, SELFPAY ==
[2023-01-02] VITALS (7 sets, daily range): BP systolic 123–149; BP diastolic 86–98; PULSE 77–99; RESP 13–22; TEMP 36.4–36.7; O2SAT 97–100
--- NOTE | ~2023-01-02 | CT_ITS ---
EXAMINATION: CT abdomen pelvis w con DATE: 01/02/2023 20:48 INDICATION: RUQ pain TECHNIQUE: Computed tomography (CT) of the abdomen and pelvis was performed with 100 mL Omnipaque-350 intravenous contrast. Automated exposure control and iterative reconstruction technique were employe d. The dose-length product was 1286.47 mGy-cm. COMPARISON: 08/27/2020. FINDINGS: Lower thorax: Unremarkable Liver: Hepatomegaly. Diffuse fatty infiltration. Biliary/Gallbladder: Gallbladder is normal. No bile duct dilation. Pancreas: No mass or duct dilation. Spleen: Normal. Adrenals:No mass. Kidneys: No mass, stone, or hydronephrosis. GI tract: No small or large bowel dilation. Normal appendix. Mesentery/Peritoneum: No ascites, mass, or free air. Retroperitoneum: No mass. Atherosclerotic abdominal aortic and/or arterial calcifications. Pelvis: Partially distended urinary bladder with wall thickening. Normal uterus and ovaries. Soft Tissues: Right lower abdominal scar. Bones: No acute osseous finding. IMPRESSION: Hepatomegaly with steatosis. Cystitis versus bladder wall thickening from inadequate distention. Reviewed, dictated and finalized at location K.
[2023-01-02 18:40] LABS: Basophils Percent Auto 0.3 % (0.2-1.2); Eosinophils Absolute Auto 0.3 K/mm3 (0-0.3); Eosinophils Percent Auto 2.4 % (0-4.4); Hematocrit 42.9 % (37.0-47.0); Hemoglobin 14.1 g/dL (12.0-15.0); Immature Granulocyte Absolute 0.05 K/mm3 (0.00-0.031); Immature Granulocyte Percent A 0.4 % (0-0.5); Lymphocytes Absolute Auto 6.01 K/mm3 (0.9-3.2); Lymphocytes Percent Auto 47.4 % (18.3-44.2); Mean Corpuscular HGB Conc 32.9 g/dl (32-36); Mean Corpuscular Hemoglobin 27.5 pg (26-34); Mean Corpuscular Volume 83.6 fl (80-100); Mean Platelet Volume 9.8 fl (7.4-10.4); Monocytes Absolute Auto 0.4 K/mm3 (0.1-0.6); Monocytes Percent Auto 3.2 % (2.6-8.5); Neutrophils Absolute Auto 5.9 K/mm3 (1.3-6.7); Neutrophils Percent Auto 46.3 % (45.5-73.1); Platelet Count Result 288 k/mm3 (150-375); Red Blood Count 5.13 M/mm3 (4.2-5.4); Red Cell Distribution Width 14.6 % (11.5-14.5); White Blood Count 12.7 K/mm3 (4.5-10.0)
[2023-01-02 18:52] LABS: Alanine Aminotransferase 34 U/L (6-35); Albumin Level 4.1 g/dL (3.5-5.1); Alkaline Phosphatase 91 U/L (38-126); Anion Gap 10 mmol/L (8-16); Aspartate Amino Transferase 33 U/L (14-36); Bilirubin,Total 0.3 mg/dL (0.2-1.3); Blood Urea Nitrogen 8 mg/dL (7-17); Calcium 9.3 mg/dL (8.4-10.2); Carbon Dioxide 17 mmol/L (22-30); Chloride 105 mmol/L (98-107); Estimated Glomerular Filt Rate > 60; Glucose 127 mg/dL (65-110); Lipase 132 U/L (23-300); Potassium 3.6 mmol/L (3.4-5.0); Sodium 132 mmol/L (137-145)
[2023-01-02] MEDS: HYDROmorphone HCL INJ (*CRX) 1 MG/ML SYR IV PUSH (20:16)
[2023-01-02] MEDS: SODIUM CHLORIDE 0.9% IV 1,000 ML 999 ML IV CONT (20:16)
[2023-01-02] MEDS: ONDANSETRON INJ 4 MG/2 ML VIAL IV PUSH (20:16)
--- NOTE | 2023-01-02 20:18 | ED.ABDPAIN ---
HPI - Abdominal Pain General Chief Complaint: Abdominal Pain Stated Complaint: abdominal pain with n/v/d Time Seen by Provider: 01/02/23 19:36 History of Present Illness HPI narrative: 27-year-old female presented the ED for evaluation of right upper quadrant pain with associated nausea and vomiting. Patient denies any prior history of gallbladder disease. Patient states symptoms have been worsening for the last few weeks. Patient was treated approximately a month ago for urinary tract infection. Related Data Allergies Allergy/AdvReac Type Severity Reaction Status Date / Time No Known Allergies Allergy Verified 01/02/23 18:15 Review of Systems Review of Systems: All systems reviewed & are unremarkable except as noted in HPI and below PMFSH Past Medical History Medical History Abscess Anxiety Depression Morbid obesity Rash of body Scoliosis Sebaceous cyst Smoker Surgical History Surgical History History of tubal ligation 07/02/2020 Hx of ovarian cystectomy Previous section Apr 2017,Apr 2019, Jun 2020 Family History Family History Grandparent Hypertension Mother Hypertension Social History Social History Social History: daily caffeine use- 1 cup coffee per day/ 1-2 sodas per week Smoking packs per day: 0.5 Smoking cigarettes per day: 10.0 Years smoked: 13 Smoking pack-years: 6.50 Smoking status: Current every day smoker Second hand tobacco smoke exposure: Yes Alcohol intake: current Alcohol use details: 1-2/YEAR Substance use: never Substance use type: does not use Living arrangements: with family Additional living arrangements comments: Patient is single. Lives with her 3 children and their father. Occupation/Education: unemployed Gender identity (if verbalized by the patient): Female Sexual Orientation (if Verbalized by the Patient): Straight or Heterosexual Spiritual care concerns: No Exam Narrative: APPEARANCE: Well appearing, no pain, no distress, well-nourished. HEAD: normocephalic, atraumatic. EYES: PERRLA/EOMI, conjunctivae clear. NOSE: Normal no drainage NECK: Supple. No adenopathy, no masses. RESPIRATORY: Airway patent, respirations nonlabored. Clear to auscultation bilaterally, no rales, rhonchi, wheezing. CARDIOVASCULAR: Regular rate and rhythm without murmurs rubs or gallops. ABDOMINAL: Right CVA tenderness and suprapubic tenderness to palpation MUSCULOSKELETAL: Moves all extremities. Strength/ROM intact, No edema, No calf tenderness. NEURO: Alert. Cranial nerves II through XII intact. Grossly intact SKIN: Warm, dry. Normal Color Course Course Emergency Course: 27-year-old female presented the emergency department for evaluation of abdominal pain associate nausea vomiting. Patient does have a mild leukocytosis of 12.7. CMP showed no significant normalities and UA was concerning for urinary tract infection. CT scan showed evidence of cystitis. Patient was treated with Rocephin and discharged home with Keflex. Patient and family were updated the results of the imaging and encouraged of close follow-up with the patient's primary care physician. Vital Signs Vital signs: Vital Signs Temperature 97.6 F 01/02/23 18:20 Pulse Rate 96 01/02/23 18:20 Respiratory Rate 14 01/02/23 18:20 Blood Pressure 126/98 H 01/02/23 18:20 Pulse Oximetry 100 01/02/23 18:20 Oxygen Delivery Room Air 01/02/23 18:20 Temperature 98.1 F 01/02/23 22:41 Pulse Rate 86 01/02/23 22:41 Respiratory Rate 22 H 01/02/23 22:41 Blood Pressure 124/86 01/02/23 22:41 Pulse Oximetry 98 01/02/23 22:41 Oxygen Delivery Room Air 01/02/23 18:20 MDM - Abdominal Pain Differential Diagnosis Differential diagnosis: Likely abdominal pain, acute appendicitis, calcul
[2023-01-02 20:26] LABS: Appearance Urine Cloudy (Clear); Bacteria Urine 3+ /hpf; Bilirubin Urine Negative (Negative); Blood Urine Negative (Negative); Color Urine Dark Yellow (Yellow); Glucose Urine UA Negative (Negative); Ketones Urine Trace mg/dL (Negative); Leukocyte Esterase Ur Trace LEU/UL (Negative); Need Manual Microscopic Reviewed; Nitrate Urine Negative (Negative); Non Pathogenic Casts 0-2; Protein Urine 3+ mg/dL (Negative); Specific Grav Ur 1.023 (1.001-1.035); Squamous Epithelial Cell Urine Many /hpf (Few); pH Urine 7.5 (5.0-9.0)
[2023-01-02 20:28] LABS: Add Urine Microscopic? YES
--- NOTE | 2023-01-02 20:46 | PC.NURSE ---
Patient off unit to CT.
--- NOTE | 2023-01-02 20:57 | PC.NURSE ---
Patient report given to YVROSE Underwood. All questions answered and care of patient transferred.
== END 2023-01-02 22:42 | disposition home or self-care (01) ==
PROVIDERS: Emergency Provider Emergency Medicine; PCP Internal Medicine Infectious Disease
DX: N39.0 Urinary tract infection, site not specified (principal); R10.11 Right upper quadrant pain; E66.01 Morbid (severe) obesity due to excess calories; Z68.42 Body mass index [BMI] 45.0-49.9, adult; F17.210 Nicotine dependence, cigarettes, uncomplicated; R16.0 Hepatomegaly, not elsewhere classified; K76.0 Fatty (change of) liver, not elsewhere classified
CPT/HCPCS: 36415; 74177; 80053; 81001; 81025; 83690; 85025; 87086; 87088; 96361; 96365; 96375; 99284; J0696; J1170; J2405; J7030; Q9967

== ENCOUNTER 2023-07-16 15:06 | Outpatient (CLI) | payer OTHER, SELFPAY ==
--- NOTE | ~2023-07-16 | US_ITS ---
EXAMINATION: US soft tissue groin LT DATE: 07/16/2023 15:41 INDICATION: Other intra-abdominal and pelvic swelling. TECHNIQUE: Multiple grayscale and Doppler ultrasound images of the left abdomen and groin were obtain ed. COMPARISON: CT abdomen and pelvis 01/02/2023 FINDINGS: There is no abnormal mass, lymphadenopathy, or hernia in the patient's area of concern in l eft lower abdomen. IMPRESSION: 1. No abnormality in the patient's area of concern in left lower abdomen. Reviewed, dictated and finalized at location A. [employer]
== END 2023-07-16 15:07 | disposition home or self-care (01) ==
PROVIDERS: PCP Internal Medicine Infectious Disease; Visit Provider Surgery
DX: R19.09 Other intra-abdominal and pelvic swelling, mass and lump (principal)
CPT/HCPCS: 76882

== ENCOUNTER 2023-08-31 20:10 | Emergency (ER) | payer OTHER, SELFPAY ==
--- NOTE | ~2023-08-31 | CT_ITS ---
EXAMINATION: CT abdomen pelvis wo con DATE: 08/31/2023 22:20 INDICATION: Right flank pain. TECHNIQUE: Computed tomography (CT) of the abdomen and pelvis was performed without intravenous contr ast. Automated exposure control and iterative reconstruction technique were employed. The dose-length product was 1335.60 mGy-cm. COMPARISON: CT abdomen and pelvis 01/02/2023 FINDINGS: The visualized portions of the lung bases demonstrate minimal atelectasis on the left. No p leural effusion. The heart size is normal. No pericardial effusion. There is diffuse hepatic steatosi s. The gallbladder, spleen, pancreas, adrenal glands, and right kidney are normal. There is a [address] one in left kidney. There are no dilated loops of bowel. The appendix is normal. There is an umbilica l hernia containing fat. There are no pathologically enlarged lymph nodes. There is no free intraperi toneal fluid. There is mild thoracic and lumbar spondylosis. IMPRESSION: 1. Diffuse hepatic steatosis. 2. Umbilical hernia containing fat. Reviewed, dictated and finalized at location E.
--- NOTE | ~2023-08-31 | US_ITS ---
Pelvic ultrasound. Clinical History: Pain Technique: Realtime transabdominal and transvaginal scanning of the pelvis was performed. Color flow Doppler and Doppler spectral analysis were performed. Findings: The uterus is anteverted. The endometrial stripe has a thickness of 11 mm. No focal mass i s identified. The right ovary measures 2.4 x 2.0 x 1.5 cm. No significant right ovarian or adnexal mass is seen. The left ovary is not visualized. No significant left ovarian or adnexal mass is seen. There is no evidence of free fluid in the cul de sac. Impression: No significant abnormality seen. Left ovary not visualized. Reviewed, dictated and finalized at location . Impression: No significant abnormality seen. Left ovary not visualized.
[2023-08-31 20:28] VITALS: BP 142/100; PULSE 111; RESP 16; TEMP 36.2; O2SAT 96
[2023-08-31 22:08] LABS: Basophils Percent Auto 0.2 % (0.2-1.2); Hematocrit 44.3 % (37.0-47.0); Hemoglobin 14.3 g/dL (12.0-15.0); Immature Granulocyte Absolute 0.07 K/mm3 (0.00-0.031); Immature Granulocyte Percent A 0.4 % (0-0.5); Lymphocytes Absolute Auto 4.96 K/mm3 (0.9-3.2); Mean Corpuscular HGB Conc 32.3 g/dl (32-36); Mean Corpuscular Hemoglobin 26.7 pg (26-34); Mean Corpuscular Volume 82.8 fl (80-100); Mean Platelet Volume 9.6 fl (7.4-10.4); Monocytes Absolute Auto 0.8 K/mm3 (0.1-0.6); Monocytes Percent Auto 4.8 % (2.6-8.5); Neutrophils Absolute Auto 10.7 K/mm3 (1.3-6.7); Neutrophils Percent Auto 64.6 % (45.5-73.1); Platelet Count Result 305 k/mm3 (150-375); Red Blood Count 5.35 M/mm3 (4.2-5.4); Red Cell Distribution Width 14.1 % (11.5-14.5); White Blood Count 16.5 K/mm3 (4.5-10.0)
[2023-08-31 22:12] LABS: Appearance Urine Clear (Clear); Bacteria Urine 3+ /hpf; Bilirubin Urine Negative (Negative); Blood Urine Negative (Negative); Color Urine Dark Yellow (Yellow); Glucose Urine UA Negative (Negative); Ketones Urine Trace mg/dL (Negative); Leukocyte Esterase Ur Negative LEU/UL (Negative); Nitrate Urine Negative (Negative); Non Pathogenic Casts 0-2; Protein Urine 4+ mg/dL (Negative); Squamous Epithelial Cell Urine Occasional /hpf (Few); WBC Urine 0-5 /hpf (0-3)
[2023-08-31 22:18] LABS: Specific Grav Ur 1.033 (1.001-1.035)
[2023-08-31 22:20] LABS: Add Urine Microscopic? YES; Alanine Aminotransferase 35 U/L (6-35); Albumin Level 4.8 g/dL (3.5-5.1); Alkaline Phosphatase 122 U/L (38-126); Anion Gap 12 mmol/L (4-12); Aspartate Amino Transferase 31 U/L (14-36); Bilirubin,Total 0.5 mg/dL (0.2-1.3); Blood Urea Nitrogen 11 mg/dL (7-17); Calcium 10.1 mg/dL (8.4-10.2); Carbon Dioxide 20 mmol/L (22-30); Chloride 105 mmol/L (98-107); Estimated Glomerular Filt Rate > 60; Glucose 109 mg/dL (65-110); Potassium 3.9 mmol/L (3.4-5.0); Sodium 137 mmol/L (137-145)
[2023-08-31 22:22] LABS: INR 0.9; Prothrombin Time 12.7 Seconds (11.1-14.7)
[2023-08-31 22:23] LABS: Partial Thromboplastin Time 22.7 Seconds (22.3-36.8)
--- NOTE | 2023-09-01 00:30 | ECG_ITS ---
SEE SCANNED COPY FOR CONFIRMED REPORT MTDD
--- NOTE | 2023-09-01 00:32 | ED.BACK ---
HPI - Back Pain/Injury General Chief Complaint: Back Pain/Injury <ROSITA Domingo Last Filed: 09/01/23 03:32> Stated Complaint: L R sharp back pain, nausea, dizzy <Sarah Mary PA-C - Last Filed: 09/01/23 03:32> Time Seen by Provider: 09/01/23 00:23 <ROSITA Domingo Last Filed: 09/01/23 03:32> History of Present Illness HPI Narrative: 28-year-old female presents to emergency department for right sided low back pain no started today at 6:00 p.m. with associated nausea and vomiting. Patient states the pain is in her right low back and sometimes radiates into her right lower quadrant. She denies dysuria, hematuria, vaginal discharge or bleeding, fever. LMP at the beginning of the month. States she has vomited a few times today since her symptoms started. She is reporting no associated lightheadedness. She reports multiple prior abdominal surgeries including cyst urine sections and prior surgeries for necrotizing fasciitis in her abdominal wall after Caesarean section in 2019. <ROSITA Domingo Last Filed: 09/01/23 03:32> Related Data Home Medications: Home Medications Medication Instructions Recorded Confirmed duloxetine 30 mg capsule,delayed 30 mg PO DAILY 07/06/23 07/09/23 release duloxetine 60 mg capsule,delayed 60 mg PO DAILY 07/06/23 07/09/23 release hydroxyzine HCl 25 mg tablet 25 mg PO BID PRN 07/06/23 07/09/23 lacosamide 100 mg tablet 100 mg PO Q12H 07/06/23 07/09/23 lamotrigine 100 mg tablet 100 mg PO DAILY 07/06/23 07/09/23 <ROSITA Domingo Last Filed: 09/01/23 03:32> Allergies/Adverse Reactions: Allergies Allergy/AdvReac Type Severity Reaction Status Date / Time No Known Allergies Allergy Verified 07/06/23 09:36 <ROSITA Domingo Last Filed: 09/01/23 03:32> Review of Systems Review of Systems: CONSTITUTIONAL: Denies fever, chills, or sweats. EYES: Denies visual changes, redness, or discharge. ENT: Denies rhinorrhea, congestion, sore throat, or otalgia. CARDIOVASCULAR: Denies chest pain, palpitations, or edema. RESPIRATORY: Denies cough or dyspnea. GASTROINTESTINAL: See HPI GENITOURINARY: Denies dysuria or hematuria. SKIN: Denies rash or itching. MUSCULOSKELETAL: See HPI NEUROLOGIC: Denies headache, numbness, or weakness. PSYCHIATRIC: Denies anxiety or depression. <Sarah Mary PA-C - Last Filed: 09/01/23 03:32> [facility] Past Medical History Medical History: Medical History Abscess Anxiety Depression Morbid obesity Rash of body Scoliosis Sebaceous cyst Smoker <Sarah Mary PA-C - Last Filed: 09/01/23 03:32> Surgical History Surgical History: Surgical History History of tubal ligation 07/02/2020 Hx of ovarian cystectomy Previous section Apr 2017,Apr 2019, Jun 2020 <Sarah Mary PA-C - Last Filed: 09/01/23 03:32> Family History Family History: Family History Grandparent Hypertension Mother Hypertension <Sarah Mary PA-C - Last Filed: 09/01/23 03:32> Social History Social History: Social History Social History: daily caffeine use- 1 cup coffee per day/ 1-2 sodas per week Smoking packs per day: 0.5 Smoking cigarettes per day: 10.0 Years smoked: 13 Smoking pack-years: 6.50 Smoking status: Current every day smoker Second hand tobacco smoke exposure: Yes Alcohol intake: current Alcohol use details: 1-2/YEAR Substance use: never Substance use type: does not use Living arrangements: with family Additional living arrangements comments: Patient is single. Lives with her 3 children and their father. Occupation/Education: unemployed Gender identity (if verbalized by the patient): Female Sexual Orientation (if Verbalized by the Patient)
[2023-09-01] MEDS: LIDOCAINE 5% PATCH 1 PATCH TRANSDERM (01:00)
[2023-09-01] MEDS: ONDANSETRON INJ 4 MG/2 ML VIAL IV PUSH (01:01)
[2023-09-01] MEDS: CYCLOBENZAPRINE HCL 10 MG TABLET PO (01:01)
[2023-09-01] MEDS: ACETAMINOPHEN 500 MG TABLET 1000 MG PO (01:01)
[2023-09-01] MEDS: SODIUM CHLORIDE 0.9% IV 1,000 ML 999 ML IV CONT (01:05)
[2023-09-01 03:30] VITALS: BP 137/74; PULSE 67; O2SAT 97
[2023-09-01 03:53] VITALS: BP 137/74; PULSE 71; RESP 17; O2SAT 94
== END 2023-09-01 03:55 | disposition home or self-care (01) ==
PROVIDERS: Emergency Medicine; Emergency Provider Physician Assistant; PCP Internal Medicine Infectious Disease
DX: M54.50 Low back pain, unspecified (principal); R10.31 Right lower quadrant pain; E66.01 Morbid (severe) obesity due to excess calories; Z68.42 Body mass index [BMI] 45.0-49.9, adult; F17.210 Nicotine dependence, cigarettes, uncomplicated
CPT/HCPCS: 36415; 74176; 76830; 76856; 80053; 81001; 81025; 85025; 85610; 85730; 93005; 96361; 96374; 99284; A9270; J2405; J7030